=== PATIENT | male | born 1965 | race Caucasian/White ===

== ENCOUNTER 2021-03-20 19:20 | Emergency (ER) | payer OTHER, SELFPAY ==
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
--- NOTE | ~2021-03-20 | CT_ITS ---
CT HEAD WITHOUT IV CONTRAST CT CERVICAL SPINE WITHOUT IV CONTRAST CT MAXILLOFACIAL WITHOUT IV CONTRAST INDICATION: Fall. Hit head. COMPARISON: None available. TECHNIQUE: Multidetector CT acquisitions of the head, maxillofacial region, and cervical spine were obtained without IV contrast. Multiplanar reformats were acquired and utilized for image interpretation. This CT examination was performed using dose optimization techniques as appropriate, variously including the following: *Automated exposure control *Adjustment of mA and/or kV according to patient size (this includes techniques or standardized protocols for targeted exams where dose is matched to indication/reason for exam; i.e. extremities or head) *Use of iterative reconstruction technique FINDINGS: HEAD: There is no intracranial hemorrhage, hydrocephalus, extra-axial surface collection, midline shift, or other herniation pattern. Miramontes to white matter differentiation is diffusely maintained without evidence of an evolved acute territorial infarct. The basilar cisterns are preserved. No significant soft tissue abnormality. No acute osseous abnormality. The paranasal sinuses and the mastoid air cells are well aerated. MAXILLOFACIAL: No acute maxillofacial fractures. Right periorbital/right frontal scalp soft tissue swelling. Periapical lucency surrounding the roots of the residual maxillary and mandibular dentition. Small fluid level within the right maxillary sinus which exhibits the sequela of chronic sinusitis. Mild mucosal thickening throughout the ethmoid air cells bilaterally. Rightward deviation of the nasal septum. CERVICAL SPINE: There is anatomic alignment of the vertebral bodies and posterior elements. There is no acute fracture and there is no acute subluxation. The craniocervical and atlantoaxial articulations are normal. There is no prevertebral soft tissue swelling. Left styloid process is elongated. No significant soft tissue abnormality within the neck. Stable image nodular and bandlike opacities within the lung apices for which a dedicated contrast-enhanced CT of the chest would be helpful in more definitive assessment. CT/CT facial bones wo con IMPRESSION: - No acute intracranial abnormality. - No acute osseous abnormality within the cervical spine. - No acute osseous abnormality within the maxillofacial region. Right periorbital/right frontal scalp soft tissue swelling. - Stable image nodular and bandlike opacities within the lung apices for which a dedicated contrast-enhanced CT of the chest would be helpful in more definitive assessment. - Elongated left styloid process that can be correlated for clinical signs of [place] syndrome. - Periapical lucency surrounding the roots of the residual maxillary and mandibular dentition.
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
--- NOTE | 2021-03-20 19:39 | ECG_ITS ---
Test Reason : FALL Blood Pressure : / mmHG Vent. Rate : 065 BPM Atrial Rate : 065 BPM P-R Int : 180 ms QRS Dur : 092 ms QT Int : 426 ms P-R-T Axes : 075 067 062 degrees QTc Int : 443 ms Normal sinus rhythm Early repolarization Otherwise normal ECG When compared with ECG of 27-JUL-2019 14:31, No significant change was found Referred By: Marietta Varner Electronically Signed By:NEY SINGH
[2021-03-20 19:52] VITALS: BP 125/74; PULSE 67; PULSE 68; RESP 17; TEMP 36.9; O2SAT 100; O2SAT 96; BMI 23.6
[2021-03-20 20:00] VITALS: BP 125/74; PULSE 67; RESP 18; TEMP 36.9; O2SAT 100
[2021-03-20 20:19] LABS: MANUAL DIFF FLAG NO
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
[2021-03-20 20:20] LABS: Basophils Percent Auto 0.5 % (0-2); Eosinophils Absolute Auto 0.1 X10*3/uL (0.0-0.4); Eosinophils Percent Auto 1.1 % (0-4); Hematocrit 36.6 % (42.0-52.0); Hemoglobin 12.4 g/dl (14.0-18.0); Imm Gran Abs Auto 0.02 X10*3/uL (0.00-0.03); Imm Gran Pct Auto 0.3 % (0.0-0.4); Lymphocytes Absolute Auto 1.9 X10*3/uL (1.2-4.9); Lymphocytes Percent Auto 29.7 % (20-40); Mean Corpuscular HGB Conc 33.9 g/dl (31.0-36.0); Mean Corpuscular Hemoglobin 28.7 pg (27.0-33.0); Mean Corpuscular Volume 84.7 fL (80.0-98.0); Mean Platelet Volume 8.6 fL (9.4-12.4); Monocytes Absolute Auto 0.4 X10*3/uL (0.1-1.2); Neutrophils Absolute Auto 3.9 x10*3/uL (2.0-8.3); Neutrophils Percent Auto 61.4 % (45-73); Platelet Count 278 X10*3/uL (160-400); Red Blood Count 4.32 X10*6/uL (4.60-5.80); Red Cell Distribution Width 13.1 % (11.0-16.0); White Blood Count 6.3 X10*3/uL (4.8-10.8)
[2021-03-20 20:28] LABS: COVID-19 Test Negative (Negative)
[2021-03-20 20:32] LABS: Ethanol < 10 mg/dL; Partial Thromboplastin Time 31.7 SEC (24.1-38.0)
[2021-03-20 20:35] LABS: Alanine Aminotransferase 24 U/L (0-40); Albumin Level 3.9 g/dL (3.5-5.0); Alkaline Phosphatase 78 U/L (39-117); Anion Gap 13 (12-20); Aspartate Amino Transferase 32 U/L (5-37); Bilirubin Total 0.5 mg/dL (0.0-1.0); Blood Urea Nitrogen 11 mg/dL (9-16); Calcium 9.1 mg/dL (8.4-10.2); Carbon Dioxide 26 mmol/L (22-29); Chloride 105 mmol/L (96-108); Creatinine Clr Calc Pharmacy 110.9; Estimated Glomerular Filt Rate > 60; Glucose Random 109 mg/dL (60-115); Potassium 3.8 mmol/L (3.3-5.1); Sodium 140 mmol/L (135-145); Total Protein 7.2 g/dL (6.5-8.0)
[2021-03-20 20:49] LABS: Troponin-I High Sensitivity < 3.5 ng/L (<3.5-35.0)
[2021-03-20 21:30] LABS: Appearance Urine CLEAR; Color Urine YELLOW; Glucose Urine UA NEG (NEG); Leukocyte Esterase Urine NEG (NEG); Nitrite Urine NEG (NEG); Specific Gravity - Urine 1.025 (1.005-1.025); Urine Blood NEG (NEG); Urine Ketones 5 MG/DL (NEG); Urine Protein NEG (NEG-TRACE)
[2021-03-20 21:39] LABS: Ammonia 38 umol/L (13-55)
[2021-03-20] MEDS: 0.9 % Sodium Chloride 1,000 ML 999 ML IV (21:46)
[2021-03-20 21:52] LABS: Amphetamine Screen Urine Not Detected (Not Detect); Barbiturates, Urine Not Detected (Not Detect); Benzodiazepines Screen Urine Not Detected (Not Detect); Cannabinoid Screen Urine POSITIVE (Not Detect); Cocaine Screen Urine POSITIVE (Not Detect); Fentanyl, urine POSITIVE (Not Detect); Opiate Screen Urine POSITIVE (Not Detect); Phencyclidine Screen Urine Not Detected (Not Detect)
--- NOTE | 2021-03-20 23:01 | PC.NURSE ---
patient undressed and checked for bugs per EMS report, negative for bugs, pt sleeping entire course of care, vital signs stable will continue to monitor
[2021-03-21] MEDS: Diphth,Pertus(ACell),Tet Adult 0.5 ML SYRINGE IM (02:04)
[2021-03-21 04:46] VITALS: BP 132/72; PULSE 60
== END 2021-03-21 06:41 | disposition home or self-care (01) ==
LOC: HO.ED 03-21 04:35
PROVIDERS: Physician Assistant; Emergency Provider Internal Medicine
DX: F10.120 Alcohol abuse with intoxication, uncomplicated (principal); S00.211A Abrasion of right eyelid and periocular area, initial encounter; W01.0XXA Fall on same level from slipping, tripping and stumbling without subsequent striking against object, initial encounter; Z20.822 Contact with and (suspected) exposure to COVID-19; Y93.01 Activity, walking, marching and hiking; Y92.414 Local residential or business street as the place of occurrence of the external cause; Y99.9 Unspecified external cause status
CPT/HCPCS: 36415; 70450; 70486; 71045; 72125; 80053; 80307; 81003; 82077; 82140; 82550; 83735; 84484; 85025; 85610; 85730; 87635; 90471; 90715; 93005; 96360; 99283; 99284

== ENCOUNTER 2021-07-02 00:24 | Emergency (ER) | payer OTHER, MEDICAID, SELFPAY ==
[2021-07-02 00:32] VITALS: BP 126/79; PULSE 74; RESP 18; TEMP 36.6; O2SAT 96; BMI 25.1
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
[2021-07-02 01:09] LABS: COVID-19 Test Negative (Negative)
== END 2021-07-02 09:30 | disposition home or self-care (01) ==
PROVIDERS: Emergency Provider Emergency Medicine
DX: F19.10 Other psychoactive substance abuse, uncomplicated (principal); F10.10 Alcohol abuse, uncomplicated; Y90.9 Presence of alcohol in blood, level not specified; Z20.822 Contact with and (suspected) exposure to COVID-19
CPT/HCPCS: 87635; 99283

== ENCOUNTER 2021-09-29 21:17 | Inpatient (IN) | payer OTHER, SELFPAY ==
--- NOTE | ~2021-09-29 | CT_ITS ---
EXAMINATION: CT HUMERUS WITHOUT CONTRAST, RIGHT CLINICAL INFORMATION: Intravenous drug use. Question tenosynovitis. COMPARISON: None TECHNIQUE: Multidetector CT imaging of the right humerus was performed without the use of intravenous contrast. Coronal and sagittal reformats are reviewed. This CT examination was performed using dose optimization techniques as appropriate, variously including the following: *Automated exposure control *Adjustment of mA and/or kV according to patient size (this includes techniques or standardized protocols for targeted exams where dose is matched to indication/reason for exam; i.e. extremities or head) *Use of iterative reconstruction technique DLP: 221 mGy-cm FINDINGS: There is diffuse increased attenuation of the subcutaneous fat about the right upper arm. There is a skin defect and presumptive packing material within the distal biceps brachialis. There are metallic densities, possibly surgical clips within the proximal forearm. Surgical clips also present within the axilla. No drainable collections are identified. No soft tissue gas. No periosteal reaction or cortical destruction to suggest osteomyelitis CT/CT humerus RT wo con IMPRESSION: * There is a skin defect and underlying wound extending into the biceps brachia, containing presumptive packing material. * No soft tissue gas to confirm necrotizing fasciitis. * No drainable collection. * Diffuse subcutaneous edema about the upper arm could be compatible with cellulitis. * No evidence of osteomyelitis.
[2021-09-29 21:45] VITALS: BP 113/74; PULSE 64; RESP 18; TEMP 37.4; O2SAT 97; BMI 19.7
[2021-09-29 22:03] LABS: MANUAL DIFF FLAG NO
[2021-09-29 22:04] LABS: Basophils Percent Auto 0.2 % (0-2); Eosinophils Percent Auto 0.3 % (0-4); Hematocrit 32.6 % (42.0-52.0); Hemoglobin 11.1 g/dl (14.0-18.0); Imm Gran Abs Auto 0.04 X10*3/uL (0.00-0.03); Imm Gran Pct Auto 0.4 % (0.0-0.4); Lymphocytes Absolute Auto 2.3 X10*3/uL (1.2-4.9); Lymphocytes Percent Auto 20.7 % (20-40); Mean Corpuscular Hemoglobin 29.5 pg (27.0-33.0); Mean Corpuscular Volume 86.7 fL (80.0-98.0); Monocytes Absolute Auto 0.7 X10*3/uL (0.1-1.2); Monocytes Percent Auto 5.8 % (2-11); Neutrophils Absolute Auto 8.1 x10*3/uL (2.0-8.3); Neutrophils Percent Auto 72.6 % (45-73); Platelet Count 287 X10*3/uL (160-400); Red Blood Count 3.76 X10*6/uL (4.60-5.80); Red Cell Distribution Width 13.7 % (11.0-16.0); White Blood Count 11.2 X10*3/uL (4.8-10.8)
[2021-09-29 22:22] LABS: Lactic Acid 0.8 mmol/L (0.5-2.0)
[2021-09-29 22:27] LABS: Alanine Aminotransferase 95 U/L (0-40); Albumin Level 3.4 g/dL (3.5-5.0); Alkaline Phosphatase 95 U/L (39-117); Anion Gap 11 (12-20); Aspartate Amino Transferase 63 U/L (5-37); Bilirubin Total 0.7 mg/dL (0.0-1.0); Blood Urea Nitrogen 10 mg/dL (9-16); Calcium 8.5 mg/dL (8.4-10.2); Carbon Dioxide 26 mmol/L (22-29); Chloride 100 mmol/L (96-108); Creatinine Clr Calc Pharmacy 109.5; Estimated Glomerular Filt Rate > 60; Glucose Random 130 mg/dL (60-115); Sodium 133 mmol/L (135-145)
[2021-09-30 03:36] VITALS: BP 111/73; PULSE 75; RESP 16; TEMP 36.8; O2SAT 98
--- NOTE | 2021-09-30 04:21 | ED.SKABFB ---
HPI - Skin/Abscess/Foreign Bdy General Chief complaint: Skin/Abscess/Foreign Body Stated complaint: Abscess Time Seen by Provider: 09/30/21 04:12 Source: patient Mode of arrival: ambulatory Limitations: no limitations History of Present Illness HPI narrative: Patient comes to the emergency room complaining of a right forearm abscess that started 2 days ago. Patient is an IV drug user. Patient denies fever chills, patient states that his arm has gotten very swollen and very tender, from the abscess to the biceps. Related Data Allergies Allergy/AdvReac Type Severity Reaction Status Date / Time No Known Drug Allergies Allergy Unknown UNKNOWN Verified 09/29/21 21:44 Review of Systems Review of Systems: Constitutional : No Weight loss, No Fever, No Chills, No Night Sweats, No Fatigue, No Malaise ENT/Mouth : No Hearing loss, No Ear Pain, No Nasal Congestion, No Sinus Pain, No Hoarseness, No sore throat, No Rhinorrhea, No Swallowing Difficulty Eyes: No Eye Pain, No Swelling, No Redness, No Foreign Body, No Discharge, No Vision Changes Cardiovascular : No Chest Pain, No SOB, No Dyspnea on Exertion, No Orthopnea, No Edema, No Palpitations Respiratory : No Cough, No Sputum, No Wheezing, No Smoke Exposure, No Dyspnea Gastrointestinal : No Nausea, No Vomiting, No Diarrhea, No Constipation, No abdominal Pain, No Hematochezia, No Melena Genitourinary : no irregular bleeding, No Dysuria, No Urinary Frequency, No Hematuria, No Urinary Incontinence, No Urgency, No Flank Pain, No Urinary Flow Changes, No Hesitancy Musculoskeletal : No joint pain, No Myalgias, No Joint Swelling, complaining of worsening pain in the biceps area above the abscess Skin : Abscess oozing pus,\ in the right forearm Neuro : No Weakness, No Numbness, No Paresthesias, No Loss of Consciousness, No Dizziness, No Headache Psych : No Anxiety/Panic, No Depression, No SI/HI/AH/VH, No Social Issues, Heme/Lymph: No Bruising, No Bleeding,No Lymphadenopathy Endocrine : No Polyuria, No Polydipsia, No Temperature Intolerance PMFSH Past Medical History Surgical History (Updated 09/30/21 @ 06:10 by Anni Chand MD) No pertinent past surgical history Family History Family History (Updated 09/30/21 @ 06:10 by Anni Chand MD) Other No family history of coronary artery disease Social History Social History (Updated 09/30/21 @ 06:11 by Anni Chand MD) Alcohol intake: current Patient Tobacco Use Status: Current everyday Tobacco user Use of substances other than those prescribed or required for medical reasons: Yes Substance Use Type: IV Drugs Advance Directives: No Advance Directives Information Provided: Yes Physical Exam Vital Signs: Vital Signs: Last Vital Signs Temp 98.2 F 09/30/21 03:36 Pulse 75 09/30/21 03:36 Resp 16 09/30/21 03:36 BP 111/73 09/30/21 03:36 Pulse Ox 98 09/30/21 03:36 O2 Del Method 09/30/21 03:36 BMI result Body Mass Index 19.7 Const: Other: Appearance: Alert. Oriented X3. No acute distress. Eyes: Pupils equal, round and reactive to light. ENT: Pharynx normal. Neck: Normal inspection. Neck supple. No lymph nodes noted. No crepitus CVS: Normal heart rate and rhythm. Pulses normal. Normal S1 and S2 Respiratory: No respiratory distress. Breath sounds normal. No Wheezing. No rales Abdomen: Soft and nontender. No rigidity. No distention. Skin: Skin warm and dry. Patient has an abscess in the right forearm in the antecubital fossa. Actively draining pus. Extremities: No lower extremity edema. Patient's right arm around the biceps is erythematous, very warm to touch, very tense. Patient does have discomfort but not out of proportion, compartment syndrome not suspected at this time. Patient is able to flex and extend all fingers without difficulty Neuro: Oriented X 3. No motor deficit. No sensory deficit. Moving all extremities. No slurred speech. CN 2 through 12 grossly intact Psych: calm, cooperative, normal affect Course Course Course Narrative: Due to the extent of the cellulitis, patient would likely benefit from IV antibiotics and admission. Abscess will be drained shortly For patient has full function of his arm, the bicipital area is erythematous and swollen. Pain is not out of proportion. At this time, compartment syndrome is not suspected. Abscess drain a moderate amount of pus, packing present. CT scan pending. Patient agrees to the plan of being admitted CT scan of arm pending I discussed the patient with Dr. Chand, patient has been started on vancomycin and Zosyn. Sepsis is not suspected. MDM - Skin/Abscess/Foreign Bdy Lab Data Result diagrams: 09/30/21 05:50 09/30/21 05:50 Labs: Lab Results 09/29/21 09/29/21 09/29/21 Range/Units 21:57 21:57 21:57 WBC 11.2 H (4.8-10.8) X10*3/uL RBC 3.76 L (4.60-5.80) X10*6/uL Hgb 11.1 L (14.0-18.0) g/dl Hct 32.6 L (42.0-52.0) % MCV 86.7 (80.0-98.0) fL MCH 29.5 (27.0-33.0) pg MCHC 34.0 (31.0-36.0) g/dl RDW 13.7 (11.0-16.0) % Plt Count 287 (160-400) X10*3/uL MPV 8.0 L (9.4-12.4) fL Immature Gran % (Auto) 0.4 (0.0-0.4) % Neut % (Auto) 72.6 (45-73) % Lymph % (Auto) 20.7 (20-40) % [place] % (Auto) 5.8 (2-11) % Eos % (Auto) 0.3 (0-4) % Baso % (Auto) 0.2 (0-2) % Lymph # (Auto) 2.3 (1.2-4.9) X10*3/uL [place] # (Auto) 0.7 (0.1-1.2) X10*3/uL Eos # (Auto) 0.0 (0.0-0.4) X10*3/uL Baso # (Auto) 0.0 (0.0-0.2) X10*3/uL Abs Immat Gran (auto) 0.04 H (0.00-0.03) X10*3/uL Absolute Neuts (auto) 8.1 (2.0-8.3) x10*3/uL Absolute Nucleated RBC 0.000 (0.0-0.012) X10*3/uL Nucleated RBC % (auto) 0.0 (0.0-0.2) /100WBC Sodium 133 L (135-145) mmol/L Potassium 4.0 (3.3-5.1) mmol/L Chloride 100 (96-108) mmol/L Carbon Dioxide 26 (22-29) mmol/L Anion Gap 11 L (12-20) BUN 10 (9-16) mg/dL Creatinine 0.70 (0.5-1.4) mg/dL Estim Creat Clear Calc 109.5 Estimated GFR > 60 Random Glucose 130 H (60-115) mg/dL Lactic Acid 0.8 (0.5-2.0) mmol/L Calcium 8.5 D (8.4-10.2) mg/dL Total Bilirubin 0.7 (0.0-1.0) mg/dL AST 63 H (5-37) U/L ALT 95 H (0-40) U/L Alkaline Phosphatase 95 D (39-117) U/L Total Protein 7.0 (6.5-8.0) g/dL Albumin 3.4 L (3.5-5.0) g/dL Imaging Data Upper extremity CT: Radiologist's impression: FINDINGS: There is diffuse increased attenuation of the subcutaneous fat about the right upper arm. There is a skin defect and presumptive packing material within the distal biceps brachialis. There are metallic densities, possibly surgical clips within the proximal forearm. Surgical clips also present within the axilla. No drainable collections are identified. No soft tissue gas. No periosteal reaction or cortical destruction to suggest osteomyelitis CT/CT humerus RT wo con IMPRESSION: *? There is a skin defect and underlying wound extending into the biceps brachia, containing presumptive packing material. *? No soft tissue gas to confirm necrotizing fasciitis. *? No drainable collection. *? Diffuse subcutaneous edema about the upper arm could be compatible with cellulitis. *? No evidence of osteomyelitis. Procedures Abscess I/D Site: other (Proximal Forearm) Side (if applicable): right Local Anesthetic: lidocaine 2% and with epi Amount of anesthesia used (mL): 9 Technique: incised with blade Amount of fluid expressed (mL): 10 Sent for culture/gram staining?: No Irrigation: No Packing used?: iodoform Discharge Plan Discharge Clinical Impression: Abscess of skin or subcutaneous tissue Patient Disposition: Admitted As Inpatient Interventions: LWBS Worksheet Last Done: 09/29/21 23:50
[2021-09-30] MEDS: Lidocaine HCl 1%/Epi 1:100,000 20 ML VIAL INFILTRATI (04:31)
[2021-09-30] MEDS: Morphine Sulfate 4 MG/ML CARTRIDGE IVPUSH (05:05)
[2021-09-30] MEDS: Piperacillin Sodium/Tazobactam 3.375 GM in 0.9 % Sodium Chloride 50 ML IV ×4 (05:05→23:37)
[2021-09-30] MEDS: vancomycin HCL 750 MG in 0.9 % Sodium Chloride 250 ML 265 MG IV ×2 (05:06→07:37)
--- NOTE | 2021-09-30 05:28 | P.HPHOSP_ITS ---
History of Present Illness Date of Service: 09/30/21 Chief Complaint: Abscess 56-year-old male with past medical history of IV drug use, alcohol abuse who presents to the hospital with complaints of abscess on the right forearm. Patient reports that he noticed it about 2-3 days ago, it is draining a malodorous pus, patient reports feeling febrile, as well as having chills. Patient denies any redness around the abscess,He reports swelling around the forearm, but has no difficulty moving his arms or hands. No loss of sensation. he denies any chest pain, no shortness of breath, no abdominal pain, no nausea or vomiting, no diarrhea constipation, no urinary symptoms and no lower extremity edema. He reports injecting at that site. On arrival to the ED patient hemodynamically stable with no significant abnormal vitals. Afebrile Labs are significant for WBC count 11.2, hemoglobin of 11.1, hematocrit 32.6, sodium 133, Patient underwent I&D in the the ED and has packing at this site Humerus CT shows a skin defect and underlying wound extending into the biceps brachii, containing presumptive packing material, no soft tissue gas to confirm necrotizing fasciitis, no drainable collection, diffuse subcutaneous edema about the upper arm could be compatible with cellulitis. Patient will be admitted for further management Review of Systems Review of Systems: Yes all other systems are reviewed and are negative [facility] Family History (Updated 09/30/21 @ 06:10 by Anni Chand MD) Other No family history of coronary artery disease Surgical History (Updated 09/30/21 @ 06:10 by Anni Chand MD) No pertinent past surgical history Social History (Updated 09/30/21 @ 06:11 by Anni Chand MD) Alcohol intake: current Patient Tobacco Use Status: Current everyday Tobacco user Use of substances other than those prescribed or required for medical reasons: Yes Substance Use Type: IV Drugs Advance Directives: No Advance Directives Information Provided: Yes Meds Allergies Allergy/AdvReac Type Severity Reaction Status Date / Time No Known Drug Allergies Allergy Unknown UNKNOWN Verified 09/29/21 21:44 Physical Exam Vital Signs and Narrative: Vital Signs: Last Vital Signs Temp 98.2 F 09/30/21 03:36 Pulse 75 09/30/21 03:36 Resp 16 09/30/21 03:36 BP 111/73 09/30/21 03:36 Pulse Ox 98 09/30/21 03:36 O2 Del Method 09/30/21 03:36 BMI result Body Mass Index 19.7 Const: Other: Ill-appearing General: cooperative and no acute distress Orientation/consciousness: patient oriented x3 Eyes: General: appearance normal, both eyes and all related structures Resp: Effort & Inspection: normal respiratory effort Auscultation: clear to auscultation bilaterally Cardio: Rate: regular rate Rhythm: regular rhythm GI: Palpation (GI): Soft to palpation Auscultation: normal bowel sounds Skin: General skin exam: no rashes or lesions noted Neuro: General: patient oriented x3 Cognition (Neuro): normal cognition Extrem: Other: Right upper extremity abscess wrapped in clean dressing at this time General: Yes normal to inspection and Yes no pedal edema Results Labs CBC and Chem 7: 09/29/21 21:57 09/29/21 21:57 Labs: Laboratory Results - last 24 hr 09/29/21 09/29/21 09/29/21 21:57 21:57 21:57 MCV 86.7 MCH 29.5 MCHC 34.0 RDW 13.7 Plt Count 287 MPV 8.0 L Immature Gran % (Auto) 0.4 Neut % (Auto) 72.6 Lymph % (Auto) 20.7 [place] % (Auto) 5.8 Eos % (Auto) 0.3 Baso % (Auto) 0.2 Lymph # (Auto) 2.3 [place] # (Auto) 0.7 Eos # (Auto) 0.0 Baso # (Auto) 0.0 Abs Immat Gran (auto) 0.04 H Absolute Neuts (auto) 8.1 Absolute Nucleated RBC 0.000 Nucleated RBC % (auto) 0.0 Anion Gap 11 L Estim Creat Clear Calc 109.5 Estimated GFR > 60 Random Glucose 130 H Lactic Acid 0.8 Calcium 8.5 D Total Bilirubin 0.7 AST 63 H ALT 95 H Alkaline Phosphatase 95 D Total Protein 7.0 Albumin 3.4 L Assessment and Plan (1) Abscess of skin or subcutaneous tissue: Status: Acute (2) IVDU (intravenous drug user): Status: Acute (3) Alcohol abuse: Status: Acute Plan 56-year-old male with past medical history of IV drug abuse presents to the hospital with abscess of right upper extremity # abscess of right upper extremity - status post I&D in the ED - given his history of IV drug use, will treat with IV antibiotics - follow cultures # alcohol abuse - reports drinking a lot of beer every day - will start on phenobarb - folic and thiamine supplements # IV drug abuse - consult to care team DVT prophylaxis: Lovenox Given his history of IV drug use and need for IV antibiotics patient will need a minimal 2 night hospital stay for further management Quality Stroke Does the patient have a stroke diagnosis?: No VTE Prior VTE?: No VTE Risk Level:: Medical - moderate - high VTE Device Contraindication: Treatment Not Indicated VTE Drug Contraindication: N/A - Med Ordered
[2021-09-30 06:11] LABS: MANUAL DIFF FLAG NO
[2021-09-30 06:27] LABS: Anion Gap 11 (12-20); Blood Urea Nitrogen 9 mg/dL (9-16); Calcium 8.6 mg/dL (8.4-10.2); Carbon Dioxide 26 mmol/L (22-29); Chloride 101 mmol/L (96-108); Creatinine Clr Calc Pharmacy 117.9; Estimated Glomerular Filt Rate > 60; Glucose Random 140 mg/dL (60-115); Potassium 4.2 mmol/L (3.3-5.1); Sodium 134 mmol/L (135-145)
[2021-09-30] MEDS: Enoxaparin Sodium 40 MG/0.4 ML SYRINGE SUBCUT (06:28)
[2021-09-30 06:38] LABS: Basophils Percent Auto 0.2 % (0-2); Eosinophils Percent Auto 0.4 % (0-4); Hematocrit 34.3 % (42.0-52.0); Hemoglobin 11.4 g/dl (14.0-18.0); Imm Gran Abs Auto 0.02 X10*3/uL (0.00-0.03); Imm Gran Pct Auto 0.2 % (0.0-0.4); Lymphocytes Percent Auto 21.1 % (20-40); Mean Corpuscular HGB Conc 33.2 g/dl (31.0-36.0); Mean Corpuscular Hemoglobin 29.1 pg (27.0-33.0); Mean Corpuscular Volume 87.5 fL (80.0-98.0); Mean Platelet Volume 8.7 fL (9.4-12.4); Monocytes Absolute Auto 0.6 X10*3/uL (0.1-1.2); Monocytes Percent Auto 6.5 % (2-11); Neutrophils Absolute Auto 6.7 x10*3/uL (2.0-8.3); Neutrophils Percent Auto 71.6 % (45-73); Platelet Count 301 X10*3/uL (160-400); Red Blood Count 3.92 X10*6/uL (4.60-5.80); Red Cell Distribution Width 13.8 % (11.0-16.0); White Blood Count 9.4 X10*3/uL (4.8-10.8)
[2021-09-30] MEDS: Folic Acid 1 MG TABLET PO (07:38)
[2021-09-30] MEDS: Thiamine HCL 100 MG TABLET PO (07:38)
--- NOTE | 2021-09-30 07:58 | PHA.MEDREC ---
Pharmacy Consult ? Medication Reconciliation Pharmacy has completed the medication reconciliation. Patient reports no medications at home. Clara Adames, JcD
--- NOTE | 2021-09-30 08:14 | PHA.PROG ---
Admission Date/Time: September 30, 2021 05:26 Indication: Abcess Weight in k.2 kg Adjusted body weight in K.86 kg Christopher body weight in K.3 kg Obesity Dosing Indication % IBW: N/A Serum Creatinine - Last 168 Hours 09/29/21 09/30/21 21:57 05:50 Creatinine 0.70 0.65 Estimated CrCl and GFR - Last 168 Hours 09/29/21 09/30/21 21:57 05:50 Estim Creat Clear Calc 109.5 117.9 Estimated GFR > 60 > 60 Vancomycin Loading Dose: 1500 mg (750 mg x 2 doses) Current Vancomycin Dosing Regimen: 1000 mg Q12H Date and Time for next Vancomycin Level to be drawn: 10/01 @ 1700 Pharmacist Comments on Vancomycin Plan: Patient was given a one time dose of vancomycin 750 mg (11.68 mg/kg) in the ED 09/30 @ 0506. Since this is a subtherapeutic loading dose, a one time 750 mg dose was given at 0737 to create a load dose of 1500 mg. Maintenance dose vancomycin 1000 mg Q12H is schedule to begin 09/30 @ 1900. Expected AUC 450 with a trough of 12.9. Trough to be drawn prior to 3rd maintenance dose. Pharamcy to monitor renal function daily Clara Adames PharmD Vancomycin dosing will take advantage of [employer] as a clinical decision support tool that uses Bayesian modeling to calculate individual patient's pharmacokinetic parameters and forecast the patient's drug concentration time course with the target goal AUC 24 range of 400 - 600 mg/L/hr.
[2021-09-30] MEDS: PHENobarbitaL 200 MG, PHENobarbitaL 60 MG 260 MG PO (08:21)
--- NOTE | 2021-09-30 08:48 | MHC.CM.PN ---
PATIENT IDENTIFIES HOMELESS. NO PCP. NO DME OR OUTSIDE SERVICES. HE HAS NOT BEEN VACCINATED AGAINST COVID-19 HE IS NOT INTERESTED IN ASSIGNING A HCP AND REPORTS THAT HE DOES NOT HAVE ANY PERSON TO ADD A CONTACT. CASE MANAGEMENT FOLLOWING
[2021-09-30 08:49] LABS: COVID-19 Test Negative (Negative); IDNOW Serial# 16C4AD1C
--- NOTE | 2021-09-30 09:23 | PC.NURSE ---
Patient moved to overflow, up walking around unit without difficulty, asking for remote, denies pain at this time
[2021-09-30 09:28] VITALS: BP 115/74; PULSE 74; RESP 15; TEMP 37.1; O2SAT 94
[2021-09-30 13:02] VITALS: BP 114/81; PULSE 72; RESP 16; TEMP 36.9; O2SAT 98
[2021-09-30] MEDS: Acetaminophen 325 MG TABLET 650 MG PO (17:44)
--- NOTE | 2021-09-30 19:17 | PC.NURSE ---
pt standing up shouting for this RN to room at start of shift, pt stated he needed to use the BR. pt disconnected from monitor and ambulated to BR with steady gait
[2021-09-30 19:20] VITALS: BP 116/75; PULSE 71; TEMP 37; O2SAT 98
[2021-09-30] MEDS: vancomycin HCL 1,000 MG in 0.9 % Sodium Chloride 250 ML 270 MG IV (19:39)
[2021-09-30 20:00] VITALS: BP 120/71; PULSE 74; RESP 18; TEMP 36.8; O2SAT 97
[2021-09-30 21:02] VITALS: BMI 19.3
[2021-09-30] MEDS: PHENobarbitaL 15 MG TABLET 45 MG PO (21:20)
[2021-09-30] MEDS: 0.9 % Sodium Chloride Flush 3 ML SYRINGE IVFLUSH (21:22)
[2021-09-30 23:33] VITALS: BP 129/87; PULSE 72; RESP 17; TEMP 36.9; O2SAT 100
[2021-10-01] VITALS (7 sets, daily range): BP systolic 127–159; BP diastolic 77–91; PULSE 55–82; RESP 15–18; TEMP 36.7–37.6; O2SAT 97–99
--- NOTE | 2021-10-01 | ECG_ITS ---
Test Reason : cp Blood Pressure : / mmHG Vent. Rate : 077 BPM Atrial Rate : 077 BPM P-R Int : 164 ms QRS Dur : 088 ms QT Int : 392 ms P-R-T Axes : 076 066 060 degrees QTc Int : 443 ms Normal sinus rhythm Minimal voltage criteria for LVH, may be normal variant ( [place] product ) ST elevation, consider early repolarization, pericarditis, or injury Abnormal ECG When compared with ECG of 20-MAR-2021 19:59, No significant change was found Referred By: Anni Chand Electronically Signed By:Krishna Rodríguez
--- NOTE | 2021-10-01 00:29 | PC.NURSE ---
hematology technician notified me patient had T wave elevations in all leads. Pt sleeping. Asymptomatic. Dr Chand notified. EKG obtained and sent to Will continue to monitor.
--- NOTE | 2021-10-01 01:06 | PM.EVENT ---
Event Note Date of Service: 10/01/21 Event Note: Patient noted to have ST elevations on the monitor, EKG obtained, patient has diffuse ST elevations concerning for possible pericarditis. Patient is asymptomatic and has no pain. Will obtain troponin, start ibuprofen t.i.d..
[2021-10-01] MEDS: Ibuprofen 600 MG TABLET PO (01:49)
[2021-10-01 01:56] LABS: Troponin-I High Sensitivity < 3.5 ng/L (<3.5-35.0)
[2021-10-01] MEDS: Piperacillin Sodium/Tazobactam 3.375 GM in 0.9 % Sodium Chloride 50 ML IV ×4 (05:34→23:11)
[2021-10-01] MEDS: Enoxaparin Sodium 40 MG/0.4 ML SYRINGE SUBCUT (05:40)
[2021-10-01 06:52] LABS: Estimated Glomerular Filt Rate > 60
--- NOTE | 2021-10-01 07:10 | HE.PHANOTE ---
Vancomycin Dosing Addendum Patient has trough due 10/01 @1700. Continue per regimen for now. Patients renal function is stable. Predicted AUC of 444mg/L/hr
[2021-10-01] MEDS: 0.9 % Sodium Chloride Flush 3 ML SYRINGE IVFLUSH ×3 (09:08→21:26)
[2021-10-01] MEDS: PHENobarbitaL 15 MG TABLET 45 MG PO ×2 (09:08→21:26)
[2021-10-01] MEDS: Folic Acid 1 MG TABLET PO (09:08)
[2021-10-01] MEDS: Thiamine HCL 100 MG TABLET PO (09:08)
[2021-10-01] MEDS: vancomycin HCL 1,000 MG in 0.9 % Sodium Chloride 250 ML 270 MG IV (09:09)
--- NOTE | 2021-10-01 11:04 | P.PNIM_ITS ---
Subjective Subjective Date of Service: 10/01/21 Interval History: cc: arm pain and swelling interval history: withdrawal symptoms, weakness abd cramping, denies chest pain, denies sob Cardiovascular Cardiovascular: Reports no additional cardiovascular complaints Respiratory Respiratory: Reports no additional respiratory complaints Physical Exam Vital Signs: Vital Signs: Last Vital Signs Temp 99.5 F 10/01/21 07:42 Pulse 76 10/01/21 07:42 Resp 15 10/01/21 07:42 BP 127/85 10/01/21 07:42 Pulse Ox 97 10/01/21 07:42 O2 Del Method 10/01/21 07:42 BMI result Body Mass Index 19.3 General: letahrgic O X 3, in distress Resp: CTA bilateral, no accessory muscles used CVS: S1,S2,RRR GI: soft, non tender, non distended Neuro: motor grossly intact, alert Psych: appropriate affect, appropriate insight Objective Data Active Medications Acetaminophen (Acetaminophen 325 Mg Tablet) 650 mg PO Q6H PRN PRN Reason: Pain, Mild (Pain Scale 1-3) Last Admin: 09/30/21 17:44 Dose: 650 mg Documented By: TAZ Docusate Sodium (Docusate Sodium 100 Mg Capsule) 100 mg PO DAILY PRN PRN Reason: Constipation Enoxaparin Sodium (Enoxaparin Sodium 40 Mg/0.4 Ml Syringe) 40 mg SUBCUT Q24H [facility] Last Admin: 10/01/21 05:40 Dose: 40 mg Documented By: CARLOS Folic Acid (Folic Acid 1 Mg Tablet) 1 mg PO DAILY [facility] Last Admin: 10/01/21 09:08 Dose: 1 mg Documented By: MARGARITA Piperacillin Sod/Tazobactam (Sod 3.375 gm/ Sodium Chloride) 50 mls @ 100 mls/hr IV Q6H [facility] Last Infusion: 10/01/21 09:09 Dose: 0 mls/hr Documented By: MARGARITA Vancomycin HCl 1,000 mg/ (Sodium Chloride) 270 mls @ 270 mls/hr IV Q12H [facility] Last Infusion: 10/01/21 10:35 Dose: 0 mls/hr Documented By: MARGARITA Ondansetron HCl (Ondansetron Hcl 4 Mg/2 Ml Vial) 4 mg IVPUSH Q8H PRN PRN Reason: Nausea and Vomiting Pharmacy Consult (Consult Rx Vancomycin Dosing) 1 each MISCELLANE DAILY PRN PRN Reason: Consult order Pharmacy Consult (Consult Rx Etoh Phenob Po Dose) 1 each MISCELLANE ONCE PRN; Protocol PRN Reason: Consult order Phenobarbital (Phenobarbital 15 Mg Tablet) 45 mg PO BID [facility]; Protocol Stop: 10/02/21 09:01 Last Admin: 10/01/21 09:08 Dose: 45 mg Documented By: MARGARITA Phenobarbital (Phenobarbital 15 Mg Tablet) 15 mg PO BID [facility]; Protocol Stop: 10/04/21 09:01 Phenobarbital (Phenobarbital 15 Mg Tablet) 15 mg PO DAILY [facility]; Protocol Stop: 10/06/21 09:01 Sodium Chloride (0.9 % Sodium Chloride Flush 3 Ml Syringe) [facility] Last Admin: 10/01/21 09:08 Dose: 3 ml Documented By: MARGARITA Thiamine HCl (Thiamine Hcl 100 Mg Tablet) 100 mg PO DAILY [facility] Last Admin: 10/01/21 09:08 Dose: 100 mg Documented By: MARGARITA Labs CBC & Chem 7: 09/30/21 05:50 10/01/21 05:49 Labs: Laboratory Results - last 24 hr 10/01/21 10/01/21 01:24 05:49 Estim Creat Clear Calc 117.0 Estimated GFR > 60 Troponin I High Sens < 3.5 Microbiology Microbiology Results: Microbiology 09/29/21 21:57 Blood Culture - Preliminary Blood - Venous No growth after 24 hours. 09/29/21 21:57 Blood Culture - Preliminary Blood - Venous No growth after 24 hours. Assessment and Plan (1) IVDU (intravenous drug user): Status: Acute Plan 56M who injects iv drugs presented with RUE swelling and pain RUE cellulitis and abscessin IVDU s/p i and d no cultures in system, blood cultures negative to date continue vanc, zosyn for now alcohol dependence with withdrawal and afld continue ciwa, phenobarb opiate dependence with withdrawal addiction team consult dvt prophylaxis - lovenox full code reason for continued hospitalization: ongiong treatement for withdrawal Quality Stroke Does the patient have a stroke diagnosis?: No VTE Prior VTE?: No VTE Risk Level:: Medical - moderate - high VTE Device Contraindication: Treatment Not Indicated VTE Drug Contraindication: N/A - Med Ordered
[2021-10-01] MEDS: methADONE HCl 20 MG/2 ML ORAL.CONC PO (12:44)
--- NOTE | 2021-10-01 14:45 | MHC.RECOVRN ---
Met with pt in 353 to follow up after receiving methadone. Pt in bed, asleep but easily awoken. Difficult to engage in conversation. Pt reports back pain and feeling the same. Pt slightly restless during visit but does not report other withdrawal symptoms. Pt is not looking to continue methadone after discharge. Discussed with Radha Pate APRN.
--- NOTE | 2021-10-01 15:24 | MHC.CM.PN ---
nurse case management note electronic medical record reviewe aLONG WITH CASE DISCUSSED ON KARINA REYNOSO PATIENT IDENTIFIES HIMESELF HOMELESS GUEST SERVICE REPRESENTATIVE PC -[facility] TRAFFIC CONTROL TECHNICIAN LIST GIVEN TO HIM TO CHOOSE A PCP AND CALL AND MAKE APPOINTMENT HE HAS NO PREVIOUS VNA /DME SERVICES UNVACINATED EDUCATED ABOUT COMPLETING A HCP AND AGAIN DECLINED RECOVERY TEAM NURSE, NURSE MET WITH PATIENT ON 10/01/21 (PLEASE SEE HER NOTE HE EXPRESSED THAT HE DOES NOT WANT METHDONE AFTER DISCHARGE , AND THIS WAS DISUCEDD WITH [facility] OF HOME ALF, COMMUNITY RESOURCES FOR HOUSING FOOD , CLOTHES TRANSPORTATION GIVEN TO HIM
[2021-10-01 18:14] LABS: Vancomycin Trough 6.2 mcg/mL (10.0-20.0)
--- NOTE | 2021-10-01 18:27 | HE.PHANOTE ---
Patient trough came back at 6.2, he had an appropriate load. Increased dose to 1500 mg q12h next trough 10/02 @1700
[2021-10-01] MEDS: vancomycin HCL 1,500 MG in 0.9 % Sodium Chloride 500 ML 333.33 MG IV (19:31)
[2021-10-02 03:34] VITALS: BP 167/75; PULSE 50; RESP 18; TEMP 37.1; O2SAT 98
[2021-10-02] MEDS: Piperacillin Sodium/Tazobactam 3.375 GM in 0.9 % Sodium Chloride 50 ML IV ×2 (05:14→10:37)
[2021-10-02] MEDS: Enoxaparin Sodium 40 MG/0.4 ML SYRINGE SUBCUT (05:15)
[2021-10-02 07:09] LABS: Hemoglobin 13.7 g/dl (14.0-18.0); Mean Corpuscular HGB Conc 34.3 g/dl (31.0-36.0); Mean Corpuscular Volume 84.6 fL (80.0-98.0); Mean Platelet Volume 8.7 fL (9.4-12.4); Platelet Count 447 X10*3/uL (160-400); Red Blood Count 4.73 X10*6/uL (4.60-5.80); Red Cell Distribution Width 13.2 % (11.0-16.0); White Blood Count 13.6 X10*3/uL (4.8-10.8)
[2021-10-02] MEDS: methADONE HCl 20 MG/2 ML ORAL.CONC 30 MG PO (07:32)
[2021-10-02] MEDS: Folic Acid 1 MG TABLET PO (07:34)
[2021-10-02] MEDS: vancomycin HCL 1,500 MG in 0.9 % Sodium Chloride 500 ML 333.33 MG IV (07:34)
[2021-10-02] MEDS: Thiamine HCL 100 MG TABLET PO (07:34)
[2021-10-02] MEDS: 0.9 % Sodium Chloride Flush 3 ML SYRINGE IVFLUSH (07:39)
[2021-10-02 07:52] LABS: Anion Gap 14 (12-20); Blood Urea Nitrogen 14 mg/dL (9-16); Carbon Dioxide 20 mmol/L (22-29); Chloride 101 mmol/L (96-108); Creatinine Clr Calc Pharmacy 81.4; Estimated Glomerular Filt Rate > 60; Glucose Fasting 133 mg/dL (60-99); Potassium 4.2 mmol/L (3.3-5.1); Sodium 131 mmol/L (135-145)
[2021-10-02] MEDS: PHENobarbitaL 30 MG TABLET 45 MG PO (09:59)
--- NOTE | 2021-10-02 12:43 | MHC.CM.PN ---
nurse bilingual case manager note electronic medical record reviewed along with case disucssed with staff nurse and hospitslidt . patient was admitted with abscess and iv drug abuse , he was seen by the addiction medical physician and recovierty team and given commiunity supports and reosurdces , discharge plan [facility] LIST OF [facility] GIVEN AND INSTRUCTED HE NEED TO CALL TO GET INTO ONE, 2 LISTS OF [facility] PHYSICIAN TO CHOOSE FROM AND PICK ONE AND CALL AND MAKE APPOINTMENT MET WITH RECOVERY NURSE AND ADDITION PHYSICAN AND [id number] BY RECOVIERY NURSE GIVEN INFORMATION ON COMMUNITY SUPPORTS TO FOLLOW UP ON TRANSPORTATION BUS PASSES GIVEN TO HIM ( HE HAS NO SPECIFIC ADDRESS TO GIVE ME WHERE HE IS GOING NO VNA ORDERED BY PHYSICIAN REVIEWED THIS WITH PATIENT ANS STAFF NRUSE
--- NOTE | 2021-10-02 13:04 | HO.ADDICTCON ---
History of Present Illness Date of Service: 10/01/2021 Chief Complaint: Abscess, IVDU Reason for Consult: opioid withdrawal Requesting physician: Jignesh Tejeda Sources of Information: patient interviewed and chart reviewed HPI Narrative: Patient is a 56-year-old [place]andan-speaking male currently medically admitted with abscess of the forearm secondary to IV drug use. Consult requested as patient was reporting withdrawal symptoms. Patient seen in room 353, patient reporting body aches, nausea, and requesting to leave. 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 Reporting between 5-10 bags of heroin IV daily. Last use prior to admission. Reports that he is currently living on [address]. Patient noted to be restless, yawning, shivering. Review of Systems Constitutional: Reports as per HPI Diagnostics Vital Signs (24Hr): Vital Signs - 24 hr 10/01/21 15:13 10/01/21 16:00 10/01/21 19:26 Temperature 98.1 F 98.1 F 98.5 F Pulse Rate 59 59 82 Respiratory Rate 18 18 18 Blood Pressure 159/91 H 159/91 H 132/77 Pulse Oximetry 99 99 97 Oxygen Delivery Method Room Air Room Air Room Air 10/01/21 20:00 10/01/21 23:40 10/02/21 03:34 Temperature 98.5 F 98.9 F 98.7 F Pulse Rate 82 55 50 Respiratory Rate 18 18 18 Blood Pressure 132/77 156/86 H 167/75 H Pulse Oximetry 97 98 98 Oxygen Delivery Method Room Air Room Air Room Air BMI result Body Mass Index 19.3 Labs Results: 10/02/21 05:51 10/02/21 05:51 Labs: Laboratory Results - last 48 hr 10/01/21 10/01/21 10/01/21 01:24 05:49 17:34 WBC RBC Hgb Hct MCV MCH MCHC RDW Plt Count MPV Absolute Nucleated RBC Nucleated RBC % (auto) Sodium Potassium Chloride Carbon Dioxide Anion Gap BUN Creatinine 0.64 Estim Creat Clear Calc 117.0 Estimated GFR > 60 Fasting Glucose Calcium Troponin I High Sens < 3.5 Vancomycin Trough 6.2 L 10/02/21 10/02/21 05:51 05:51 WBC 13.6 H RBC 4.73 D Hgb 13.7 L D Hct 40.0 L MCV 84.6 MCH 29.0 MCHC 34.3 RDW 13.2 Plt Count 447 H D MPV 8.7 L Absolute Nucleated RBC 0.000 Nucleated RBC % (auto) 0.0 Sodium 131 L Potassium 4.2 Chloride 101 Carbon Dioxide 20 L Anion Gap 14 BUN 14 D Creatinine 0.92 Estim Creat Clear Calc 81.4 Estimated GFR > 60 Fasting Glucose 133 H Calcium 8.0 L D Troponin I High Sens Vancomycin Trough Imaging Radiology Impressions: ITS Impressions Humerus CT 09/30/21 04:50 IMPRESSION: * There is a skin defect and underlying wound extending into the biceps brachia, containing presumptive packing material. * No soft tissue gas to confirm necrotizing fasciitis. * No drainable collection. * Diffuse subcutaneous edema about the upper arm could be compatible with cellulitis. * No evidence of osteomyelitis. Mental Status Exam Mental Status Exam Patient Appearance: Unkempt Patient Behavior: Appropriate and Cooperative Medications Allergies Allergies Allergy/AdvReac Type Severity Reaction Status Date / Time No Known Drug Allergies Allergy Unknown UNKNOWN Verified 10/01/21 14:46 Assessment & Plan Assessment & Plan (1) Opioid withdrawal: Status: Acute Code(s): F11.23 - Opioid dependence with withdrawal Assessment and Plan: Methadone 20 mg x 1 ordered Methadone 10 mg p.r.n. 1 time dose ordered for overnight if necessary Will follow up morning I spent ___35___ minutes with the patient and/or on the patient floor today, greater than?50% of which was spent counseling/coordinating care. [facility] Family History Family History (System 10/01/21 @ 14:46 by Jennie Ibarra) Other No family history of coronary artery disease Surgical History Surgical History (System 10/01/21 @ 14:46 by Jennie Ibarra) No pertinent past surgical history Social History Social History (System 10/01/21 @ 14:46 by Jennie Ibarra) Household Members: None Housing: Homeless Do you presently have visiting nurse or other home services: No Alcohol intake: current Patient Tobacco Use Status: Current everyday Tobacco user Tobacco use type: Cigarette Cigarettes Per Day: 15 Substance Use Type: Crack/Cocaine and Marijuana service: No Current occupational status: unemployed and disabled
--- NOTE | 2021-10-02 13:09 | HO.ADDICTPRO ---
Subjective Subjective Date of Service: 10/02/21 Reason For Visit: Abscess, IVDU Interim History: Patient seen in follow-up. Appearing much more comfortable. Reporting that he feels more comfortable. Received 30 mg of methadone. Patient reporting that he would like to be discharged, declines referrals to continue methadone in the community. Information provided anyway just in case. This senior underwriter reviewed risks and benefits of continuing treatment or stopping treatment. Patient verbalized understanding. Review of Systems Constitutional: Reports as per HPI and Reports no additional constitutional complaints Mental Status Exam Mental Status Exam Patient Appearance: Unkempt Patient Behavior: Appropriate and Cooperative Judgement: Fair Diagnostics Vital Signs (24Hr): Vital Signs - 24 hr 10/01/21 15:13 10/01/21 16:00 10/01/21 19:26 Temperature 98.1 F 98.1 F 98.5 F Pulse Rate 59 59 82 Respiratory Rate 18 18 18 Blood Pressure 159/91 H 159/91 H 132/77 Pulse Oximetry 99 99 97 Oxygen Delivery Method Room Air Room Air Room Air 10/01/21 20:00 10/01/21 23:40 10/02/21 03:34 Temperature 98.5 F 98.9 F 98.7 F Pulse Rate 82 55 50 Respiratory Rate 18 18 18 Blood Pressure 132/77 156/86 H 167/75 H Pulse Oximetry 97 98 98 Oxygen Delivery Method Room Air Room Air Room Air BMI result Body Mass Index 19.3 Labs Results: 10/02/21 05:51 10/02/21 05:51 Labs: Laboratory Results - last 48 hr 10/01/21 10/01/21 10/01/21 01:24 05:49 17:34 WBC RBC Hgb Hct MCV MCH MCHC RDW Plt Count MPV Absolute Nucleated RBC Nucleated RBC % (auto) Sodium Potassium Chloride Carbon Dioxide Anion Gap BUN Creatinine 0.64 Estim Creat Clear Calc 117.0 Estimated GFR > 60 Fasting Glucose Calcium Troponin I High Sens < 3.5 Vancomycin Trough 6.2 L 10/02/21 10/02/21 05:51 05:51 WBC 13.6 H RBC 4.73 D Hgb 13.7 L D Hct 40.0 L MCV 84.6 MCH 29.0 MCHC 34.3 RDW 13.2 Plt Count 447 H D MPV 8.7 L Absolute Nucleated RBC 0.000 Nucleated RBC % (auto) 0.0 Sodium 131 L Potassium 4.2 Chloride 101 Carbon Dioxide 20 L Anion Gap 14 BUN 14 D Creatinine 0.92 Estim Creat Clear Calc 81.4 Estimated GFR > 60 Fasting Glucose 133 H Calcium 8.0 L D Troponin I High Sens Vancomycin Trough Imaging Radiology Impressions: ITS Impressions Humerus CT 09/30/21 04:50 IMPRESSION: * There is a skin defect and underlying wound extending into the biceps brachia, containing presumptive packing material. * No soft tissue gas to confirm necrotizing fasciitis. * No drainable collection. * Diffuse subcutaneous edema about the upper arm could be compatible with cellulitis. * No evidence of osteomyelitis. Medications Allergies Allergies Allergy/AdvReac Type Severity Reaction Status Date / Time No Known Drug Allergies Allergy Unknown UNKNOWN Verified 10/01/21 14:46 Assessment & Plan Assessment & Plan (1) Opioid use disorder: Status: Acute Code(s): F11.90 - Opioid use, unspecified, uncomplicated Assessment and Plan: Community information provided to access continuation of methadone if patient open to that. Provided patient with a photocopy of his ID. Risk reduction Education, overdose prevention discussion. Take home Narcan provided I spent _15 minutes with the patient and/or on the patient floor today, greater than?50% of which was spent counseling/coordinating care.
--- NOTE | 2021-10-02 15:38 | PM.DS ---
DS: Providers Provider Date of Service: 10/02/21 Date of admission: 09/30/21 05:26 Primary care physician: Unknown Physician Consults: 10/01/21 11:05 Addiction Medicine Routine Consulting Provider: Radha Pate Reason for consultation: opiate dependence, reporting withdrawal DS: Diagnosis Discharge Diagnosis (1) Opioid use disorder: Status: Acute DS: Summary Hospital Course Hospital Course: history of presenting illness Date of Service: 09/30/21 Chief Complaint: Abscess 56-year-old male with past medical history of IV drug use, alcohol abuse who presents to the hospital with complaints of abscess on the right forearm.? Patient reports that he noticed it about 2-3 days ago, it is draining a malodorous pus, patient reports feeling febrile, as well as having chills.? Patient denies any redness around the abscess,He reports swelling around the forearm, but has no difficulty moving his arms or hands.? No loss of sensation.? he denies any chest pain, no shortness of breath, no abdominal pain, no nausea or vomiting, no diarrhea constipation, no urinary symptoms and no lower extremity edema.? He reports injecting at that site. On arrival to the ED patient hemodynamically stable with no significant abnormal vitals.? Afebrile Labs are significant for WBC count 11.2, hemoglobin of 11.1, hematocrit 32.6, sodium 133, Patient underwent I&D in the the ED and has packing at this site Humerus CT shows a skin defect and underlying wound extending into the biceps brachii, containing presumptive packing material, no soft tissue gas to confirm necrotizing fasciitis, no drainable collection, diffuse subcutaneous edema about the upper arm could be compatible with cellulitis. Patient will be admitted for further management hospital course 56M who injects iv drugs presented with RUE swelling and pain and diagnosed to have RUE cellulitis and abscess at site of IVDU, underwent I&D in the emergency room, patient placed on IV vancomycin and Zosyn blood cultures x2 are negative, the significant improvement in right upper extremity swelling and redness therefore he is being discharged home on 5 more days of Keflex and doxycycline. alcohol dependence with withdrawal patient treated with phenobarb protocol, and has been strongly advised to abstain from alcohol. opiate dependence with withdrawal patient met with addiction team and decline outpatient referrals for methadone Time Spent with Patient Time attestation: Total time spent providing and/or coordinating discharge services: Discharge coordination time: Greater than 30 minutes Quality: Safe Use of Opioids Does Pt have an Active Cancer Diagnosis on the Problem List?: No Quality: Stroke Does the patient have a stroke diagnosis?: No Physical Exam Vital Signs: Vital Signs: Last Vital Signs Temp 98.7 F 10/02/21 03:34 Pulse 50 10/02/21 03:34 Resp 18 10/02/21 03:34 BP 167/75 H 10/02/21 03:34 Pulse Ox 98 10/02/21 03:34 O2 Del Method 10/02/21 03:34 BMI result Body Mass Index 19.3 Const: Other: General: alert,oriented x 3, in no distress Resp:? CTA bilateral, no accessory muscles used CVS: S1,S2,RRR GI: soft, non tender, non distended right upper extremity swelling and erythema resolved, no drainage at site of I&D Neuro:? motor grossly intact, alert Psych: appropriate affect, appropriate insight? DS: Data Data Completed and Pending Labs on day of discharge: Laboratory Results - last 24 hr 10/01/21 10/02/21 10/02/21 17:34 05:51 05:51 WBC 13.6 H RBC 4.73 D Hgb 13.7 L D Hct 40.0 L MCV 84.6 MCH 29.0 MCHC 34.3 RDW 13.2 Plt Count 447 H D MPV 8.7 L Absolute Nucleated RBC 0.000 Nucleated RBC % (auto) 0.0 Sodium 131 L Potassium 4.2 Chloride 101 Carbon Dioxide 20 L Anion Gap 14 BUN 14 D Creatinine 0.92 Estim Creat Clear Calc 81.4 Estimated GFR > 60 Fasting Glucose 133 H Calcium 8.0 L D Vancomycin Trough 6.2 L Preliminary micro results at discharge 09/29/21 21:57 Blood Culture - Preliminary Blood - Venous No growth after 48 hours. 09/29/21 21:57 Blood Culture - Preliminary Blood - Venous No growth after 48 hours. Discharge Plan Discharge Patient Disposition: Home, Self-Care Discharge Diagnosis: right upper extremity cellulitis and abscess alcohol dependence with withdrawal opiate dependence with withdrawal Referrals: Physician,Unknown J [Primary Care Provider] - 1 Week Discharge Medications: New doxycycline hyclate 100 mg capsule 100 mg PO BID Qty: 10 0RF cephalexin 500 mg capsule 500 mg PO Q8H Qty: 15 0RF Discharge Orders: Discharge Order (Routine); Ordered 10/02/21 Ordered By: Ankit Ospina Diet: advance to usual diet Activity on Discharge: As tolerated Stand Alone Forms: Patient Portal Discharge page Care Plan Goals: alcohol abuse and withdrawal strongly recommend to abstain from alcohol right forearm cellulitis and abscess recommend to continue antibiotic as prescribed, strongly recommend to abstain from IV drug abuse Health Concerns: alcohol abuse/ opioid dependence Plan of Treatment: outpatient follow-up with primary care physician in 1-2 weeks Assessment: as per discharge summary Discharge Date/Time: 10/02/21 12:55
== END 2021-10-02 12:55 | disposition home or self-care (01) | DRG 383 ==
LOC: HO.ED 09-30 05:33 → HO.EDOVER 09-30 05:35 → HO.S3 09-30 13:17
PROVIDERS: Emergency Medicine; Internal Medicine; Admitting Provider Internal Medicine; Emergency Provider Emergency Medicine; Visit Provider Hospitalist
DX: L02.413 Cutaneous abscess of right upper limb (principal); F10.239 Alcohol dependence with withdrawal, unspecified; F17.210 Nicotine dependence, cigarettes, uncomplicated; Z20.822 Contact with and (suspected) exposure to COVID-19; F11.23 Opioid dependence with withdrawal; L03.113 Cellulitis of right upper limb; Z71.6 Tobacco abuse counseling; Z59.02 Unsheltered homelessness
CPT/HCPCS: 36415; 73200; 80048; 80053; 80202; 82565; 83605; 84484; 85025; 85027; 87040; 87635; 93005; 96365; 96367; 96375; 99218; 99285; J1650; J2270; J2543; J3370

== ENCOUNTER 2021-10-24 20:55 | Emergency (ER) | payer OTHER, SELFPAY ==
--- NOTE | ~2021-10-24 | CT_ITS ---
EXAMINATION: CT HEAD WITHOUT CONTRAST CLINICAL INFORMATION: Altered mental status COMPARISON: CT head 03/20/2021. TECHNIQUE: Contiguous axial imaging was performed from the skull base to vertex without intravenous administration of contrast. This CT examination was performed using dose optimization techniques as appropriate, variously including the following: *Automated exposure control *Adjustment of mA and/or kV according to patient size (this includes techniques or standardized protocols for targeted exams where dose is matched to indication/reason for exam; i.e. extremities or head) *Use of iterative reconstruction technique DLP: 781 mGy-cm FINDINGS: Mild diffuse commensurate prominence of ventricles and sulci is noted. No intrarenal hemorrhage, tumors or acute infarcts visualized. The orbits and globes are normal in appearance. Minimal mucosal thickening and/or retained secretions are noted within the right maxillary sinus. The mastoid air cells and middle ear cavities are clear. CT/CT head/brain wo con IMPRESSION: No acute intracranial abnormalities.
--- NOTE | ~2021-10-24 | XR_ITS ---
EXAMINATION: XR CHEST CLINICAL INFORMATION: Altered mental status COMPARISON: 03/20/2021 TECHNIQUE: Frontal view of the chest was obtained. FINDINGS: Cardiac leads overlie the chest. Metallic fragment over the midline. Right axillary surgical clips. Additional tiny radiopaque densities over the right upper thorax. The lungs are well expanded. Minimal opacity at the left base. No pleural effusion or pneumothorax. The cardiomediastinal silhouette is within normal limits. No acute osseous abnormality. XR/XR chest 1V IMPRESSION: Minimal left basilar opacity favoring atelectasis, though pneumonia not excluded.
[2021-10-24 21:03] VITALS: BP 150/81; BP 170/90; PULSE 55; PULSE 60; RESP 18; TEMP 36.5; O2SAT 98; O2SAT 99; BMI 19.3
--- NOTE | 2021-10-24 21:28 | ECG_ITS ---
Test Reason : OVERDOSE Blood Pressure : / mmHG Vent. Rate : 043 BPM Atrial Rate : 043 BPM P-R Int : 168 ms QRS Dur : 092 ms QT Int : 514 ms P-R-T Axes : 061 060 055 degrees QTc Int : 434 ms Marked sinus bradycardia Minimal voltage criteria for LVH, may be normal variant ( Sokolow-Bal ) Abnormal ECG When compared with ECG of 01-OCT-2021 00:44, Vent. rate has decreased BY 34 BPM Referred By: Raine Servin Electronically Signed By:Krishna Rodríguez
--- NOTE | 2021-10-24 21:34 | ED.OVERDOSE ---
HPI - Overdose General Chief Complaint: Overdose Stated Complaint: od Time Seen by Provider: 10/24/21 21:27 Source: EMS and old records reviewed Mode of arrival: EMS Limitations: altered mental status History of Present Illness MD complaint: other (altered mental status found sleeping in parking lot) Onset (ago): unknown Related Data Previous Rx's Medication Instructions Recorded cephalexin 500 mg capsule 500 mg PO Q8H #15 caps 10/02/21 doxycycline hyclate 100 mg capsule 100 mg PO BID #10 caps 10/02/21 Allergies Allergy/AdvReac Type Severity Reaction Status Date / Time No Known Drug Allergies Allergy Unknown UNKNOWN Verified 10/01/21 14:46 Review of Systems Review of Systems: ROS unable to be obtained due to altered mental status [facility] Past Medical History Attestation statement: The following information was validated with the patient. Medical History Alcohol abuse Opioid use disorder Surgical History (System 10/01/21 @ 14:46 by Jennie Ibarra) No pertinent past surgical history Family History Family History (System 10/01/21 @ 14:46 by Jennie Ibarra) Other No family history of coronary artery disease Social History Social History Household Members: None Housing: Homeless Do you presently have visiting nurse or other home services: No Alcohol intake: current Patient Tobacco Use Status: Current everyday Tobacco user Tobacco use type: Cigarette Cigarettes Per Day: 15 Substance Use Type: Crack/Cocaine and Marijuana Advance Directives: No Advance Directives Information Provided: No service: No Current occupational status: unemployed and disabled Physical Exam Vital Signs: Vital Signs: Last Vital Signs Temp 97.7 F 10/24/21 21:03 Pulse 55 10/24/21 21:03 Resp 18 10/24/21 21:03 BP 150/81 H 10/24/21 21:03 Pulse Ox 99 10/24/21 21:03 O2 Del Method 10/24/21 21:03 Oxygen Flow Rate 2 10/24/21 21:03 BMI result Body Mass Index 19.3 MDM - Overdose ECG Data Attestation: I personally reviewed and interpreted this ECG as follows: ECG interpretation date: 10/24/21 ECG interpretation time: 21:35 Interpretation: Rate: 43 Rhythm: sinus bradycardia [place]: normal , LVH Normal P waves. Normal KATIE. Normal QRS complex. ST T wave : normal no JASEN u waves noted qTC: normal prior studies: no acute ischemia The study has been interpreted contemporaneously by me. . Discharge Plan Discharge Prescriptions: No Action doxycycline hyclate 100 mg capsule 100 mg PO BID Qty: 10 0RF cephalexin 500 mg capsule 500 mg PO Q8H Qty: 15 0RF
--- NOTE | 2021-10-24 21:50 | ED_ITS ---
HPI - Altered Mental Status General Chief Complaint: Overdose Stated Complaint: od Time Seen by Provider: 10/24/21 21:27 Source: EMS and old records reviewed Mode of arrival: EMS Limitations: altered mental status History of Present Illness HPI narrative: found sleeping in parking lot reportedly given bystander narcan but no response, EMS gave 2mg narcan but patient still somnolent on arrival. complaint: altered mental status Onset (ago): unknown Severity: moderate Consistency of symptoms: constant Context: alcohol abuse, drug abuse and history of similar presentation Associated symptoms: denies other symptoms Treatments prior to arrival: other (no response to EMS narcan) Related Data Previous Rx's Medication Instructions Recorded cephalexin 500 mg capsule 500 mg PO Q8H #15 caps 10/02/21 doxycycline hyclate 100 mg capsule 100 mg PO BID #10 caps 10/02/21 Allergies Allergy/AdvReac Type Severity Reaction Status Date / Time No Known Drug Allergies Allergy Unknown UNKNOWN Verified 10/01/21 14:46 Review of Systems Review of Systems: ROS unable to be obtained due to altered mental status [facility] Past Medical History Source: old records reviewed Medical History Alcohol abuse Opioid use disorder Surgical History (System 10/01/21 @ 14:46 by Jennie Ibarra) No pertinent past surgical history Family History Family History (System 10/01/21 @ 14:46 by Jennie Ibarra) Other No family history of coronary artery disease Social History Social History Household Members: None Housing: Homeless Do you presently have visiting nurse or other home services: No Alcohol intake: current Patient Tobacco Use Status: Current everyday Tobacco user Tobacco use type: Cigarette Cigarettes Per Day: 15 Substance Use Type: Crack/Cocaine and Marijuana Advance Directives: No Advance Directives Information Provided: No service: No Current occupational status: unemployed and disabled Physical Exam ED Vital Signs: Vital Signs - 24 hr 10/24/21 21:03 10/25/21 00:49 Temperature 97.7 F Pulse Rate 55 57 Respiratory Rate 18 11 L Blood Pressure 150/81 H 148/89 H Pulse Oximetry 99 95 Oxygen Delivery Method Nasal Cannula Nasal Cannula Oxygen Flow Rate 3 Fraction of Inspired Oxygen 24 BMI result Body Mass Index 19.3 Appearance: yawning at times, yells to painful stimuli but otherwise not responding. mild acute distress. Eyes: Pupils equal, round and reactive to light. 2mm ENT: Pharynx normal. abrasion appears old on forehead Neck: Normal inspection. Neck supple. CVS: bradycardic heart rate and rhythm. Pulses normal. Respiratory: No respiratory distress. Breath sounds normal. Abdomen: Soft and nontender. Skin: Skin warm and dry. Normal skin color. Normal skin turgor. track de [place] rosa noted both arms Extremities: No lower extremity edema. Neuro: somnolent No motor deficit. No sensory deficit. Course Course Course Narrative: afebrile, no WBC count, negative lactic acidosis, procalcitonin low, possible small infiltrate but that is not causing his symptoms suspect some other substance on board other than just fentanyl/heroin will continue to observe in ED until more awake Patient placed in physician observation at 1147pm. The indication for observation is that the patient needs more time to clinically improve and metabolize substances. At this time the patient is woken up by tactile stimuli VS stable, lungs clear, CV RRR, abd nontender somnolent likely due to patient testing positive for 6/8 out substance on tox screen patient already had bout of diarrhea, doubt he would be able to take in oral lactulose and i'm not sure he'd be able to rectally retain lactulose - will r epeat ammonia ammonia 50 MDM - Altered Mental Status MDM Narrative Medical decision making narrative: 56 yo male with hx of opiate abuse, IVDA, alcohol abuse here with nystagmus, no response to narcan ?ETOH intoxication, will obtain labs, hydrate, CT head for ICH, tox labs, CXR for aspiration - dispo per results and findings. Lab Data Result diagrams: 10/24/21 21:34 10/24/21 21:34 Labs: Lab Results 10/24/21 10/24/21 10/24/21 Range/Units 21:34 21:34 21:34 WBC 9.6 (4.8-10.8) X10*3/uL RBC 4.43 L (4.60-5.80) X10*6/uL Hgb 12.6 L (14.0-18.0) g/dl Hct 38.2 L (42.0-52.0) % MCV 86.2 (80.0-98.0) fL MCH 28.4 (27.0-33.0) pg MCHC 33.0 (31.0-36.0) g/dl RDW 13.7 (11.0-16.0) % Plt Count 299 D (160-400) X10*3/uL MPV 8.2 L (9.4-12.4) fL Immature Gran % (Auto) 0.4 (0.0-0.4) % Neut % (Auto) 43.7 L (45-73) % Lymph % (Auto) 47.5 H (20-40) % [place] % (Auto) 6.3 (2-11) % Eos % (Auto) 1.5 (0-4) % Baso % (Auto) 0.6 (0-2) % Lymph # (Auto) 4.6 (1.2-4.9) X10*3/uL [place] # (Auto) 0.6 (0.1-1.2) X10*3/uL Eos # (Auto) 0.1 (0.0-0.4) X10*3/uL Baso # (Auto) 0.1 (0.0-0.2) X10*3/uL Abs Immat Gran (auto) 0.04 H (0.00-0.03) X10*3/uL Absolute Neuts (auto) 4.2 (2.0-8.3) x10*3/uL Absolute Nucleated RBC 0.000 (0.0-0.012) X10*3/uL Nucleated RBC % (auto) 0.0 (0.0-0.2) /100WBC PT 11.1 (10.0-13.1) SEC INR 1.0 (0.9-1.1) VBG pH (7.32-7.43) VBG pCO2 mmHg VBG pO2 mmHg VBG HCO3 (22-26) mmol/L VBG O2 Saturation % VBG Base Excess mmol/L Sodium 141 (135-145) mmol/L Potassium 3.2 L D (3.3-5.1) mmol/L Chloride 104 (96-108) mmol/L Carbon Dioxide 28 (22-29) mmol/L Anion Gap 12 (12-20) BUN 10 (9-16) mg/dL Creatinine 0.78 (0.5-1.4) mg/dL Estim Creat Clear Calc 83.3 Estimated GFR > 60 Random Glucose 135 H (60-115) mg/dL Lactic Acid (0.5-2.0) mmol/L Calcium 9.1 D (8.4-10.2) mg/dL Magnesium 1.4 L* (1.6-2.6) mg/dL Total Bilirubin 0.5 (0.0-1.0) mg/dL Direct Bilirubin 0.3 (0.0-0.5) mg/dL AST 68 H (5-37) U/L ALT 51 H (0-40) U/L Alkaline Phosphatase 157 H D (39-117) U/L Ammonia (13-55) umol/L Total Creatine Kinase 115 D (38-174) U/L Troponin I High Sens (<3.5-35.0) ng/L B-Natriuretic Peptide (<100) pg/mL Total Protein 7.6 (6.5-8.0) g/dL Albumin 3.6 (3.5-5.0) g/dL Lipase 66 (8-78) U/L Procalcitonin ng/mL Urine Color Urine Appearance Urine pH (5.0-8.0) Ur Specific [place] (1.005-1.025) Urine Protein (NEG-TRACE) MG/DL Urine Glucose (UA) (NEG) MG/DL Urine Ketones (NEG) MG/DL Urine Blood (NEG) Urine Nitrite (NEG) Ur Leukocyte Esterase (NEG) Salicylates < 5.0 L (15-30) mg/dL Urine Opiates Screen (Not Detect) Urine Fentanyl Screen (Not Detect) Acetaminophen < 1 (<30) mcg/mL Ur Barbiturates Screen (Not Detect) Ur Phencyclidine Scrn (Not Detect) Ur Amphetamines Screen (Not Detect) U Benzodiazepines Scrn (Not Detect) Urine Cocaine Screen (Not Detect) U Marijuana (THC) Screen (Not Detect) Ethyl Alcohol < 10 mg/dL COVID-19 (RAE) (Negative) COVID-19 Clin Com 10/24/21 10/24/21 10/24/21 Range/Units 21:34 21:35 21:35 WBC (4.8-10.8) X10*3/uL RBC (4.60-5.80) X10*6/uL Hgb (14.0-18.0) g/dl Hct (42.0-52.0) % MCV (80.0-98.0) fL MCH (27.0-33.0) pg MCHC (31.0-36.0) g/dl RDW (11.0-16.0) % Plt Count (160-400) X10*3/uL MPV (9.4-12.4) fL Immature Gran % (Auto) (0.0-0.4) % Neut % (Auto) (45-73) % Lymph % (Auto) (20-40) % [place] % (Auto) (2-11) % Eos % (Auto) (0-4) % Baso % (Auto) (0-2) % Lymph # (Auto) (1.2-4.9) X10*3/uL [place] # (Auto) (0.1-1.2) X10*3/uL Eos # (Auto) (0.0-0.4) X10*3/uL Baso # (Auto) (0.0-0.2) X10*3/uL Abs Immat Gran (auto) (0.00-0.03) X10*3/uL Absolute Neuts (auto) (2.0-8.3) x10*3/uL Absolute Nucleated RBC (0.0-0.012) X10*3/uL Nucleated RBC % (auto) (0.0-0.2) /100WBC PT (10.0-13.1) SEC INR (0.9-1.1) VBG pH (7.32-7.43) VBG pCO2 mmHg VBG pO2 mmHg VBG HCO3 (22-26) mmol/L VBG O2 Saturation % VBG Base Excess mmol/L Sodium (135-145) mmol/L Potassium (3.3-5.1) mmol/L Chloride (96-108) mmol/L Carbon Dioxide (22-29) mmol/L Anion Gap (12-20) BUN (9-16) mg/dL Creatinine (0.5-1.4) mg/dL Estim Creat Clear Calc Estimated GFR Random Glucose (60-115) mg/dL Lactic Acid 1.3 (0.5-2.0) mmol/L Calcium (8.4-10.2) mg/dL Magnesium (1.6-2.6) mg/dL Total Bilirubin (0.0-1.0) mg/dL Direct Bilirubin (0.0-0.5) mg/dL AST (5-37) U/L ALT (0-40) U/L Alkaline Phosphatase (39-117) U/L Ammonia (13-55) umol/L Total Creatine Kinase (38-174) U/L Troponin I High Sens < 3.5 (<3.5-35.0) ng/L B-Natriuretic Peptide 24 (<100) pg/mL Total Protein (6.5-8.0) g/dL Albumin (3.5-5.0) g/dL Lipase (8-78) U/L Procalcitonin 0.11 ng/mL Urine Color Urine Appearance Urine pH (5.0-8.0) Ur Specific [place] (1.005-1.025) Urine Protein (NEG-TRACE) MG/DL Urine Glucose (UA) (NEG) MG/DL Urine Ketones (NEG) MG/DL Urine Blood (NEG) Urine Nitrite (NEG) Ur Leukocyte Esterase (NEG) Salicylates (15-30) mg/dL Urine Opiates Screen (Not Detect) Urine Fentanyl Screen (Not Detect) Acetaminophen (<30) mcg/mL Ur Barbiturates Screen (Not Detect) Ur Phencyclidine Scrn (Not Detect) Ur Amphetamines Screen (Not Detect) U Benzodiazepines Scrn (Not Detect) Urine Cocaine Screen (Not Detect) U Marijuana (THC) Screen (Not Detect) Ethyl Alcohol mg/dL COVID-19 (RAE) (Negative) COVID-19 Clin Com 10/24/21 10/24/21 10/24/21 Range/Units 22:24 22:24 22:28 WBC (4.8-10.8) X10*3/uL RBC (4.60-5.80) X10*6/uL Hgb (14.0-18.0) g/dl Hct (42.0-52.0) % MCV (80.0-98.0) fL MCH (27.0-33.0) pg MCHC (31.0-36.0) g/dl RDW (11.0-16.0) % Plt Count (160-400) X10*3/uL MPV (9.4-12.4) fL Immature Gran % (Auto) (0.0-0.4) % Neut % (Auto) (45-73) % Lymph % (Auto) (20-40) % [place] % (Auto) (2-11) % Eos % (Auto) (0-4) % Baso % (Auto) (0-2) % Lymph # (Auto) (1.2-4.9) X10*3/uL [place] # (Auto) (0.1-1.2) X10*3/uL Eos # (Auto) (0.0-0.4) X10*3/uL Baso # (Auto) (0.0-0.2) X10*3/uL Abs Immat Gran (auto) (0.00-0.03) X10*3/uL Absolute Neuts (auto) (2.0-8.3) x10*3/uL Absolute Nucleated RBC (0.0-0.012) X10*3/uL Nucleated RBC % (auto) (0.0-0.2) /100WBC PT (10.0-13.1) SEC INR (0.9-1.1) VBG pH 7.37 (7.32-7.43) VBG pCO2 39 mmHg VBG pO2 45 mmHg VBG HCO3 23 (22-26) mmol/L VBG O2 Saturation 74.0 % VBG Base Excess -1.6 mmol/L Sodium (135-145) mmol/L Potassium (3.3-5.1) mmol/L Chloride (96-108) mmol/L Carbon Dioxide (22-29) mmol/L Anion Gap (12-20) BUN (9-16) mg/dL Creatinine (0.5-1.4) mg/dL Estim Creat Clear Calc Estimated GFR Random Glucose (60-115) mg/dL Lactic Acid (0.5-2.0) mmol/L Calcium (8.4-10.2) mg/dL Magnesium (1.6-2.6) mg/dL Total Bilirubin (0.0-1.0) mg/dL Direct Bilirubin (0.0-0.5) mg/dL AST (5-37) U/L ALT (0-40) U/L Alkaline Phosphatase (39-117) U/L Ammonia 73 H (13-55) umol/L Total Creatine Kinase (38-174) U/L Troponin I High Sens (<3.5-35.0) ng/L B-Natriuretic Peptide (<100) pg/mL Total Protein (6.5-8.0) g/dL Albumin (3.5-5.0) g/dL Lipase (8-78) U/L Procalcitonin ng/mL Urine Color Urine Appearance Urine pH (5.0-8.0) Ur Specific [place] (1.005-1.025) Urine Protein (NEG-TRACE) MG/DL Urine Glucose (UA) (NEG) MG/DL Urine Ketones (NEG) MG/DL Urine Blood (NEG) Urine Nitrite (NEG) Ur Leukocyte Esterase (NEG) Salicylates (15-30) mg/dL Urine Opiates Screen (Not Detect) Urine Fentanyl Screen (Not Detect) Acetaminophen (<30) mcg/mL Ur Barbiturates Screen (Not Detect) Ur Phencyclidine Scrn (Not Detect) Ur Amphetamines Screen (Not Detect) U Benzodiazepines Scrn (Not Detect) Urine Cocaine Screen (Not Detect) U Marijuana (THC) Screen (Not Detect) Ethyl Alcohol mg/dL COVID-19 (RAE) Negative (Negative) COVID-19 Clin Com See Note 10/25/21 10/25/21 10/25/21 Range/Units 00:13 00:13 01:42 WBC (4.8-10.8) X10*3/uL RBC (4.60-5.80) X10*6/uL Hgb (14.0-18.0) g/dl Hct (42.0-52.0) % MCV (80.0-98.0) fL MCH (27.0-33.0) pg MCHC (31.0-36.0) g/dl RDW (11.0-16.0) % Plt Count (160-400) X10*3/uL MPV (9.4-12.4) fL Immature Gran % (Auto) (0.0-0.4) % Neut % (Auto) (45-73) % Lymph % (Auto) (20-40) % [place] % (Auto) (2-11) % Eos % (Auto) (0-4) % Baso % (Auto) (0-2) % Lymph # (Auto) (1.2-4.9) X10*3/uL [place] # (Auto) (0.1-1.2) X10*3/uL Eos # (Auto) (0.0-0.4) X10*3/uL Baso # (Auto) (0.0-0.2) X10*3/uL Abs Immat Gran (auto) (0.00-0.03) X10*3/uL Absolute Neuts (auto) (2.0-8.3) x10*3/uL Absolute Nucleated RBC (0.0-0.012) X10*3/uL Nucleated RBC % (auto) (0.0-0.2) /100WBC PT (10.0-13.1) SEC INR (0.9-1.1) VBG pH (7.32-7.43) VBG pCO2 mmHg VBG pO2 mmHg VBG HCO3 (22-26) mmol/L VBG O2 Saturation % VBG Base Excess mmol/L Sodium (135-145) mmol/L Potassium (3.3-5.1) mmol/L Chloride (96-108) mmol/L Carbon Dioxide (22-29) mmol/L Anion Gap (12-20) BUN (9-16) mg/dL Creatinine (0.5-1.4) mg/dL Estim Creat Clear Calc Estimated GFR Random Glucose (60-115) mg/dL Lactic Acid (0.5-2.0) mmol/L Calcium (8.4-10.2) mg/dL Magnesium (1.6-2.6) mg/dL Total Bilirubin (0.0-1.0) mg/dL Direct Bilirubin (0.0-0.5) mg/dL AST (5-37) U/L ALT (0-40) U/L Alkaline Phosphatase (39-117) U/L Ammonia 50 (13-55) umol/L Total Creatine Kinase (38-174) U/L Troponin I High Sens (<3.5-35.0) ng/L B-Natriuretic Peptide (<100) pg/mL Total Protein (6.5-8.0) g/dL Albumin (3.5-5.0) g/dL Lipase (8-78) U/L Procalcitonin ng/mL Urine Color YELLOW Urine Appearance CLEAR Urine pH 6.5 (5.0-8.0) Ur Specific [place] 1.010 (1.005-1.025) Urine Protein NEG (NEG-TRACE) MG/DL Urine Glucose (UA) NEG (NEG) MG/DL Urine Ketones NEG (NEG) MG/DL Urine Blood NEG (NEG) Urine Nitrite NEG (NEG) Ur Leukocyte Esterase NEG (NEG) Salicylates (15-30) mg/dL Urine Opiates Screen POSITIVE H (Not Detect) Urine Fentanyl Screen POSITIVE H (Not Detect) Acetaminophen (<30) mcg/mL Ur Barbiturates Screen POSITIVE H (Not Detect) Ur Phencyclidine Scrn Not Detected (Not Detect) Ur Amphetamines Screen Not Detected (Not Detect) U Benzodiazepines Scrn POSITIVE H (Not Detect) Urine Cocaine Screen POSITIVE H (Not Detect) U Marijuana (THC) Screen POSITIVE H (Not Detect) Ethyl Alcohol mg/dL COVID-19 (RAE) (Negative) COVID-19 Clin Com Discharge Plan Discharge Clinical Impression: Hypomagnesemia, Acute hypokalemia, Active substance abuse Altered mental status Qualifiers: Altered mental status type: somnolence Qualified Code(s): R40.0 - Somnolence Pneumonia Qualifiers: Pneumonia type: due to unspecified organism Laterality: left Lung location: lower lobe of lung Qualified Code(s): J18.9 - Pneumonia, unspecified organism Patient Disposition: Still a Patient Prescriptions: No Action doxycycline hyclate 100 mg capsule 100 mg PO BID Qty: 10 0RF cephalexin 500 mg capsule 500 mg PO Q8H Qty: 15 0RF
[2021-10-24] MEDS: ondansetron HCL 4 MG/2 ML VIAL IVPUSH (22:01)
[2021-10-24] MEDS: Naloxone HCl 2 MG/2 ML SYRINGE IM (22:02)
[2021-10-24] MEDS: Naloxone HCl Nasal 4 MG SPRAY NOSTRILALT (22:02)
[2021-10-24] MEDS: 0.9 % Sodium Chloride 1,000 ML 999 ML IVCONT (22:03)
[2021-10-24 22:07] LABS: MANUAL DIFF FLAG NO
[2021-10-24 22:16] LABS: Basophils Absolute Auto 0.1 X10*3/uL (0.0-0.2); Basophils Percent Auto 0.6 % (0-2); Eosinophils Absolute Auto 0.1 X10*3/uL (0.0-0.4); Eosinophils Percent Auto 1.5 % (0-4); Hematocrit 38.2 % (42.0-52.0); Hemoglobin 12.6 g/dl (14.0-18.0); Imm Gran Abs Auto 0.04 X10*3/uL (0.00-0.03); Imm Gran Pct Auto 0.4 % (0.0-0.4); Lymphocytes Absolute Auto 4.6 X10*3/uL (1.2-4.9); Lymphocytes Percent Auto 47.5 % (20-40); Mean Corpuscular Hemoglobin 28.4 pg (27.0-33.0); Mean Corpuscular Volume 86.2 fL (80.0-98.0); Mean Platelet Volume 8.2 fL (9.4-12.4); Monocytes Absolute Auto 0.6 X10*3/uL (0.1-1.2); Monocytes Percent Auto 6.3 % (2-11); Neutrophils Absolute Auto 4.2 x10*3/uL (2.0-8.3); Neutrophils Percent Auto 43.7 % (45-73); Platelet Count 299 X10*3/uL (160-400); Red Blood Count 4.43 X10*6/uL (4.60-5.80); Red Cell Distribution Width 13.7 % (11.0-16.0); White Blood Count 9.6 X10*3/uL (4.8-10.8)
[2021-10-24 22:18] LABS: Prothrombin Time 11.1 SEC (10.0-13.1)
[2021-10-24 22:24] LABS: Lactic Acid 1.3 mmol/L (0.5-2.0)
[2021-10-24 22:34] LABS: VBG Base Excess -1.6 mmol/L; VBG HCO3 23 mmol/L (22-26); VBG pCO2 39 mmHg; VBG pH 7.37 (7.32-7.43); VBG pO2 45 mmHg
[2021-10-24 22:34] LABS: Venous Blood Gas Refer to POC result
[2021-10-24 22:35] LABS: B Type Natriuretic Peptide 24 pg/mL (<100); Troponin-I High Sensitivity < 3.5 ng/L (<3.5-35.0)
[2021-10-24 22:35] LABS: Acetaminophen LAB < 1 mcg/mL (<30); Alanine Aminotransferase 51 U/L (0-40); Albumin Level 3.6 g/dL (3.5-5.0); Alkaline Phosphatase 157 U/L (39-117); Anion Gap 12 (12-20); Aspartate Amino Transferase 68 U/L (5-37); Bilirubin Direct 0.3 mg/dL (0.0-0.5); Bilirubin Total 0.5 mg/dL (0.0-1.0); Blood Urea Nitrogen 10 mg/dL (9-16); Calcium 9.1 mg/dL (8.4-10.2); Carbon Dioxide 28 mmol/L (22-29); Chloride 104 mmol/L (96-108); Creatinine Clr Calc Pharmacy 83.3; Estimated Glomerular Filt Rate > 60; Ethanol < 10 mg/dL; Glucose Random 135 mg/dL (60-115); Lipase 66 U/L (8-78); Magnesium 1.4 mg/dL (1.6-2.6); Potassium 3.2 mmol/L (3.3-5.1); Salicylate < 5.0 mg/dL (15-30); Sodium 141 mmol/L (135-145); Total Protein 7.6 g/dL (6.5-8.0)
[2021-10-24 22:39] LABS: COVID-19 Test Negative (Negative); IDNOW Serial# 55D5AD1C
[2021-10-24 22:43] LABS: Ammonia 73 umol/L (13-55)
[2021-10-24 23:13] LABS: Procalcitonin 0.11 ng/mL
[2021-10-24] MEDS: cefTRIAXone sodium 1 GM in 0.9 % Sodium Chloride 50 ML IV (23:35)
[2021-10-24] MEDS: Azithromycin 500 MG in 0.9 % Sodium Chloride 250 ML 125 MG IV (23:37)
[2021-10-24] MEDS: Thiamine HCL 200 MG in 0.9 % Sodium Chloride 100 ML 204 MG IV (23:41)
[2021-10-24] MEDS: Magnesium Sulfate/H2O 2 GM/50 ML PIGGYBACK IV (23:41)
[2021-10-25 00:21] LABS: Appearance Urine CLEAR; Color Urine YELLOW; Glucose Urine UA NEG (NEG); Leukocyte Esterase Urine NEG (NEG); Nitrite Urine NEG (NEG); PH 6.5 (5.0-8.0); Urine Blood NEG (NEG); Urine Ketones NEG (NEG); Urine Protein NEG (NEG-TRACE)
[2021-10-25] MEDS: Potassium Chloride/H20 10 MEQ/100 ML PIGGYBACK 100 MEQ IV ×2 (00:23)
[2021-10-25 00:40] LABS: Amphetamine Screen Urine Not Detected (Not Detect); Barbiturates, Urine POSITIVE (Not Detect); Benzodiazepines Screen Urine POSITIVE (Not Detect); Cannabinoid Screen Urine POSITIVE (Not Detect); Cocaine Screen Urine POSITIVE (Not Detect); Fentanyl, urine POSITIVE (Not Detect); Opiate Screen Urine POSITIVE (Not Detect); Phencyclidine Screen Urine Not Detected (Not Detect)
[2021-10-25 00:49] VITALS: BP 148/89; PULSE 57; RESP 11; O2SAT 95
[2021-10-25 01:53] LABS: Ammonia 50 umol/L (13-55)
[2021-10-25 03:52] VITALS: BP 150/90; PULSE 46; RESP 34; O2SAT 96
[2021-10-25 04:48] VITALS: BP 153/82; PULSE 47; RESP 11; O2SAT 98
[2021-10-25 09:31] VITALS: BP 166/90; PULSE 45; RESP 19; TEMP 36.5; O2SAT 97
--- NOTE | 2021-10-25 11:04 | MHC.RECOVSUP ---
Addendum entered by Neymar Lopez [facility] 10/25/21 12:45: Patient declined SUDE and did not wish to speak to this specifications writer. Original Note: Recovery Support note: This specifications writer and PA attempted to wake patient for SUDE. Patient unable to engage in consultation at this time, continues to sleep. This specifications writer offered detox and patient did not respond. This specifications writer will reattempt SUDE when patient is more engaged.
--- NOTE | 2021-10-25 12:24 | PC.NURSE ---
jose f from care team, multiple rns and techs attempting to help pt with detox- pt refusing to speak to anyone. pt shaking his head yes when asked if he wanted to be dc. provider aware. plan for dc.
== END 2021-10-25 13:00 | disposition home or self-care (01) ==
PROVIDERS: Emergency Provider Emergency Medicine
DX: E83.42 Hypomagnesemia (principal); E87.6 Hypokalemia; F19.10 Other psychoactive substance abuse, uncomplicated; R40.0 Somnolence; J18.9 Pneumonia, unspecified organism; Z20.822 Contact with and (suspected) exposure to COVID-19; F17.200 Nicotine dependence, unspecified, uncomplicated; Z79.899 Other long term (current) drug therapy
CPT/HCPCS: 36415; 70450; 71045; 80048; 80076; 80143; 80179; 80307; 81003; 82077; 82140; 82550; 82803; 83605; 83690; 83735; 83880; 84145; 84484; 85025; 85610; 87040; 87635; 93005; 96361; 96365; 96366; 96372; 96375; 99284; J0456; J0696; J2405; J3411; J3475

== ENCOUNTER 2021-11-06 23:34 | Emergency (ER) | payer OTHER, SELFPAY ==
--- NOTE | ~2021-11-06 | CT_ITS ---
EXAMINATION: CT HEAD WITHOUT CONTRAST CLINICAL INFORMATION: Pain COMPARISON: 10/24/2021 TECHNIQUE: Contiguous axial imaging was performed from the skull base to vertex without intravenous administration of contrast. This CT examination was performed using dose optimization techniques as appropriate, variously including the following: *Automated exposure control *Adjustment of mA and/or kV according to patient size (this includes techniques or standardized protocols for targeted exams where dose is matched to indication/reason for exam; i.e. extremities or head) *Use of iterative reconstruction technique DLP: 776 mGy-cm FINDINGS: There is no evidence of acute intracranial hemorrhage or territorial infarction. No abnormal mass effect or midline shift is seen. [place] to white matter differentiation is well preserved. No extra-axial fluid collections are identified. The ventricles are normal in size. There is no abnormal attenuation within the brain parenchyma. The osseous structures and soft tissues are normal. There is mucosal thickening of the right maxillary sinus and anterior ethmoid air cells. The mastoid air cells are well-aerated. CT/CT head/brain wo con IMPRESSION: No acute intracranial pathology.
[2021-11-07 00:32] VITALS: BP 130/85; PULSE 73; RESP 14; TEMP 37.1; O2SAT 97; BMI 20.9
[2021-11-07 03:20] VITALS: BP 139/87; PULSE 69; RESP 15; TEMP 37.1; O2SAT 98
--- NOTE | 2021-11-07 03:22 | ED_ITS ---
HPI - Fall General Chief Complaint: Dizziness Stated Complaint: Fall/Drug Use Time Seen by Provider: 11/07/21 00:36 Source: patient and old records reviewed Mode of arrival: ambulatory Limitations: other (poor historian, slightly rude ) History of Present Illness complaint: fall Onset (ago): unknown Fall from: standing Fall witnessed: no Place fall occurred: street Loss of consciousness: unsure Prolonged down time: no Symptoms prior to fall: none Context: other (states when he uses drugs he falls over sometimes) Location of injury: head Severity: mild Quality: other (denies pain) Associated symptoms (after fall): other (has skin abrasion to left eyebrow area states when he does heroin he falls forward) Related Data Previous Rx's Medication Instructions Recorded cephalexin 500 mg capsule 500 mg PO Q8H #15 caps 10/02/21 doxycycline hyclate 100 mg capsule 100 mg PO BID #10 caps 10/02/21 amoxicillin 875 mg-potassium 1 tab PO BID #14 tabs 10/25/21 clavulanate 125 mg tablet Allergies Allergy/AdvReac Type Severity Reaction Status Date / Time No Known Drug Allergies Allergy Unknown UNKNOWN Verified 10/01/21 14:46 Review of Systems Review of Systems: Constitutional : No Fever, No Chills, No Fatigue ENT/Mouth : No sore throat, No Rhinorrhea Eyes: No Eye Pain, No Swelling, No Redness Cardiovascular : No Chest Pain, No SOB, No Dyspnea on Exertion Respiratory : No Cough, No Sputum Gastrointestinal : No Nausea, No Vomiting, No Diarrhea, No abdominal Pain Genitourinary : No Dysuria, No Urinary Frequency, No Hematuria, Musculoskeletal : No joint pain, No Myalgias, No Joint Swelling Skin : No Skin Lesions, No rash, pos abrasion Neuro : No Weakness, No Numbness, No Dizziness, no Headache Psych : No Anxiety/Panic, No Depression Heme/Lymph: No Bruising, No Bleeding,No Lymphadenopathy Endocrine : No Polyuria, No Polydipsia All other systems reviewed and are negative [facility] [place] Past Medical History Attestation statement: The following information was validated with the patient. Medical History Alcohol abuse Opioid use disorder Surgical History (System 10/01/21 @ 14:46 by Jennie Ibarra) No pertinent past surgical history Family History Family History (System 10/01/21 @ 14:46 by Jennie Ibarra) Other No family history of coronary artery disease Social History Social History Household Members: None Housing: Homeless Do you presently have visiting nurse or other home services: No Alcohol intake: unknown Patient Tobacco Use Status: Current everyday Tobacco user Tobacco use type: Cigarette Cigarettes Per Day: 15 Use of substances other than those prescribed or required for medical reasons: Yes Substance Use Type: Heroin Substance Use Frequency: Chronic Longstanding Advance Directives: No Advance Directives Information Provided: No service: No Current occupational status: unemployed and disabled Physical Exam Vital Signs: Vital Signs: Last Vital Signs Temp 97.0 F 11/07/21 03:49 Pulse 69 11/07/21 03:49 Resp 16 11/07/21 03:49 BP 146/89 H 11/07/21 03:49 Pulse Ox 98 11/07/21 03:49 O2 Del Method 11/07/21 03:49 BMI result Body Mass Index 20.9 Appearance: Somnolent Oriented X3. No acute distress. Thin appearing Eyes: Pupils equal, round and reactive to light. ENT: Pharynx normal. L eyebrow area abrasion and dried blood noted Neck: Normal inspection. Neck supple. CVS: Normal heart rate and rhythm. Pulses normal. Respiratory: No respiratory distress. Breath sounds normal. Abdomen: Soft and non=tender. Skin: Skin warm and dry. Normal skin color. Normal skin turgor. Extremities: No lower extremity edema. No calf ttp Neuro: Oriented X 3. No motor deficit. No sensory deficit. Course Course Course Narrative: Physician observation started at 409am. Patient placed in physician observation because the patient needed more time for CARE team to help with detox. At the time observation was started the patient's vitals were stable, patient is somnolent but easily woken he is oriented, Neuro: nonfocal, CV RRR, Lungs clear MDM - Fall MDM Narrative Medical decision making narrative: 56 yo male with hx of substance abuse here with c/o head injury after fall while using - no other complaints at this time will obtain head CT to r/o trauma has no neck pain. He is not sure he wants detox and isn't sure he wants to be started on substance abuse treatment will refer to CARE team after CT head. Lab Data Labs: Lab Results 11/07/21 Range/Units 03:41 COVID-19 (RAE) Negative (Negative) COVID-19 Clin Com See Note Discharge Plan Discharge Clinical Impression: Fall, Abrasion, Opiate abuse, continuous Patient Disposition: Still a Patient Prescriptions: No Action doxycycline hyclate 100 mg capsule 100 mg PO BID Qty: 10 0RF cephalexin 500 mg capsule 500 mg PO Q8H Qty: 15 0RF amoxicillin-pot clavulanate 875-125 mg tablet 1 tab PO BID Qty: 14 0RF
[2021-11-07 03:49] VITALS: BP 146/89; PULSE 69; RESP 16; TEMP 36.1; O2SAT 98
[2021-11-07 04:01] LABS: COVID-19 Test Negative (Negative)
--- NOTE | 2021-11-07 05:28 | PC.NURSE ---
BEVERLY VACA SAID THAT PATIENT DOES NOT NEED TO BE TUBE WINDER HAND .
[2021-11-07 05:32] VITALS: BP 140/85; PULSE 69; RESP 16; TEMP 36.2; O2SAT 98
[2021-11-07 08:24] VITALS: BP 140/72; PULSE 66; RESP 16; O2SAT 99
--- NOTE | 2021-11-07 08:25 | PC.NURSE ---
Pt is sleeping and minimally aroused to verbal stimuli. Alert and oriented. Refuses to answer questions at this time. Lung sounds: Wheezes on left lower lobe, clear sounds on the right. No SOB/PARADISE noted. Heart sounds are regular. Active bowel sounds. Bruising/abrasion on left side of face, above the eyebrow/christianity area. Pt aware of plan of care. MD aware.
--- NOTE | 2021-11-07 10:10 | PC.NURSE ---
pt oob took up his belongs and amb (i) gait steady out of er. pt is lucid. aware..
== END 2021-11-07 10:30 | disposition left against medical advice (07) ==
PROVIDERS: Emergency Provider Emergency Medicine
DX: S00.212A Abrasion of left eyelid and periocular area, initial encounter (principal); W01.0XXA Fall on same level from slipping, tripping and stumbling without subsequent striking against object, initial encounter; R42 Dizziness and giddiness; F11.10 Opioid abuse, uncomplicated; F10.10 Alcohol abuse, uncomplicated; F17.210 Nicotine dependence, cigarettes, uncomplicated; Z20.822 Contact with and (suspected) exposure to COVID-19; Y93.9 Activity, unspecified; Y92.480 Sidewalk as the place of occurrence of the external cause; Y99.9 Unspecified external cause status
CPT/HCPCS: 70450; 87635; 99284

== ENCOUNTER 2022-06-08 19:15 | Emergency (ER) | payer OTHER, SELFPAY ==
[2022-06-08 19:22] VITALS: BP 153/93; PULSE 65; RESP 16; TEMP 36.9; O2SAT 97; BMI 19.8
--- NOTE | 2022-06-08 19:38 | ED.PSYCH ---
HPI - Psych General Chief Complaint: Psychiatric Symptoms Stated Complaint: CRISIS,SI,HALUCINATING,HIGH BP PER EMS Time Seen by Provider: 06/08/22 19:32 Source: family and EMS Mode of arrival: EMS Limitations: other (under the influence of drugs poor historian) History of Present Illness HPI Narrative: 56-year-old homeless male with a history of chronic substance abuse brought in via EMS for SI, HI and hallucinations. Patient is and coherent but is having difficulty explaining the timeline of his symptoms. Patient states he has thoughts to harm himself and others but no plans to do so. Patient states he has been hearing voices in his head, seeing black figures in front of him the are there, and having tactile hallucinations as well. Patient says that he did cocaine, dope and smoked marijuana today at 14:30. Smokes cigarettes occasionally. Denies any alcohol use. Patient is homeless but states he has been occasionally sleeping in a [facility]. Patient denies chest pain, SOB, headaches, nausea, vomiting, diarrhea. No medical complaints. Related Data Home Medications Medication Instructions Recorded Confirmed No Known Home Meds 06/08/22 06/08/22 Allergies Allergy/AdvReac Type Severity Reaction Status Date / Time No Known Drug Allergies Allergy Unknown UNKNOWN Verified 10/01/21 14:46 Review of Systems Review of Systems: Constitutional : No Fever, No Chills ENT/Mouth : No Ear Pain, No Nasal Congestion, No sore throat Eyes: No Eye Pain, No Swelling, No Redness Cardiovascular : No Chest Pain, No SOB Respiratory : No Cough, No Sputum, No Dyspnea Gastrointestinal : No Nausea, No Vomiting, No Diarrhea, No Hematochezia, No Melena Genitourinary : No Dysuria, No Urinary Frequency, No Hematuria Musculoskeletal : No Myalgias Skin : No Skin Lesions, No rash Neuro : No Weakness, No Numbness, No Paresthesias, No Dizziness, No Headache Psych : positive Anxiety, positive Depression, positive SI/HI Heme/Lymph: No Lymphadenopathy Endocrine : No Polyuria, No Polydipsia All other systems reviewed and are negative Yes all other systems are reviewed and are negative [facility] Past Medical History Attestation statement: The following information was validated with the patient. Source: old records reviewed and nursing notes reviewed Medical History Alcohol abuse Opioid use disorder Surgical History No pertinent past surgical history Family History Family History Other No family history of coronary artery disease Social History Social History Household Members: None Housing: Homeless Do you presently have visiting nurse or other home services: No Alcohol intake: unknown Patient Tobacco Use Status: Current everyday Tobacco user Tobacco use type: Cigarette Cigarettes Per Day: 15 Substance Use Type: Heroin Advance Directives: No Advance Directives Information Provided: No service: No Current occupational status: unemployed and disabled Physical Exam Vital Signs: Vital Signs: Last Vital Signs Temp 98.4 F 06/08/22 19:22 Pulse 65 06/08/22 19:22 Resp 16 06/08/22 19:22 BP 153/93 H 06/08/22 19:22 Pulse Ox 97 06/08/22 19:22 O2 Del Method 06/08/22 19:22 BMI result Body Mass Index 19.8 vss Appearance: Alert.? Oriented X3.? No acute distress.? Head: Normocephalic, atraumatic, no step-offs or deformities Eyes: Pupils equal, round and reactive to light.? Neck: Normal inspection.? Neck supple.? CVS: Normal heart rate and rhythm.? Pulses normal.? Respiratory: No respiratory distress.? Breath sounds normal.? Abdomen: Soft and nontender.? Skin: Skin warm and dry.? Normal skin color.? Normal skin turgor.? Extremities: No lower extremity edema.? No calf ttp. 5/5 strength to bilateral upper and lower extremities Neuro: Oriented X 3.? No motor deficit.? No sensory deficit. CN 2-12 intact Course Reevaluation(s) Reevaluation #1: CBC appears to be around patient's baseline. Chemistry pending. UA without infection. Urine toxicology positive for opiates, fentanyl, cocaine, marijuana. Ethanol negative. Salicylates acetaminophen pending. Patient was evaluated by care team, will be re-evaluation tomorrow, care team will also work with the middle school football coach is for patient's care plan. At this time patient will be placed in observation, time observation was started patient common cooperative no acute distress will continue to monitor Time: 21:38 Medical Decision Making Medical Decision Making [facility] Narrative: 2135 56-year-old male presents with suicidal, homicidal ideation without plan, visual, auditory hallucinations and polysubstance abuse. Physical exam benign. Symptoms likely secondary to polysubstance abuse or or depression. Unlikely metabolic disturbances. Plan at this time medical clearance evaluation by the behavioral health team Differential Diagnosis Differential Diagnoses: The differential diagnosis associated with the presentation includes Symptoms likely secondary to polysubstance abuse or or depression. Unlikely metabolic disturbances. Admission/Observation Consideration of admission/observation: Escalation of care including admission/observation considered [facility] psych admit Consult Healthcare Provider Management of the patient was discussed with: Behavioral Health Provider Lab Data [facility] Lab Attestation statement: I reviewed the patient's lab results. 06/08/22 20:59 06/08/22 20:59 Labs: Lab Results 06/08/22 06/08/22 06/08/22 Range/Units 20:11 20:11 20:22 WBC (4.8-10.8) X10*3/uL RBC (4.60-5.80) X10*6/uL Hgb (14.0-18.0) g/dl Hct (42.0-52.0) % MCV (80.0-98.0) fL MCH (27.0-33.0) pg MCHC (31.0-36.0) g/dl RDW (11.0-16.0) % Plt Count (160-400) X10*3/uL MPV (9.4-12.4) fL Immature Gran % (Auto) (0.0-0.4) % Neut % (Auto) (45-73) % Lymph % (Auto) (20-40) % [place] % (Auto) (2-11) % Eos % (Auto) (0-4) % Baso % (Auto) (0-2) % Lymph # (Auto) (1.2-4.9) X10*3/uL [place] # (Auto) (0.1-1.2) X10*3/uL Eos # (Auto) (0.0-0.4) X10*3/uL Baso # (Auto) (0.0-0.2) X10*3/uL Abs Immat Gran (auto) (0.00-0.03) X10*3/uL Absolute Neuts (auto) (2.0-8.3) x10*3/uL Absolute Nucleated RBC (0.0-0.012) X10*3/uL Nucleated RBC % (auto) (0.0-0.2) /100WBC Urine Color Yellow Urine Appearance Clear Urine pH 7.0 (5.0-9.0) Ur Specific [place] 1.020 (1.005-1.025) Urine Protein Negative (Neg-Trace) mg/dL Urine Glucose (UA) Negative (Negative) mg/dL Urine Ketones Negative (Negative) mg/dL Urine Blood Negative (Negative) Urine Nitrite Negative (Negative) Ur Leukocyte Esterase Negative (Negative) Urine Opiates Screen POSITIVE H (Not Detect) Urine Fentanyl Screen POSITIVE H (Not Detect) Ur Barbiturates Screen Not Detected (Not Detect) Ur Phencyclidine Scrn Not Detected (Not Detect) Ur Amphetamines Screen Not Detected (Not Detect) U Benzodiazepines Scrn Not Detected (Not Detect) Urine Cocaine Screen POSITIVE H (Not Detect) U Marijuana (THC) Screen POSITIVE H (Not Detect) COVID-19 (RAE) Negative (Negative) COVID-19 Clin Com See Note 06/08/22 Range/Units 20:59 WBC 8.5 (4.8-10.8) X10*3/uL RBC 3.88 L (4.60-5.80) X10*6/uL Hgb 11.4 L (14.0-18.0) g/dl Hct 33.6 L (42.0-52.0) % MCV 86.6 (80.0-98.0) fL MCH 29.4 (27.0-33.0) pg MCHC 33.9 (31.0-36.0) g/dl RDW 13.1 (11.0-16.0) % Plt Count 267 (160-400) X10*3/uL MPV 8.9 L (9.4-12.4) fL Immature Gran % (Auto) 0.2 (0.0-0.4) % Neut % (Auto) 69.5 (45-73) % Lymph % (Auto) 23.6 (20-40) % [place] % (Auto) 6.0 (2-11) % Eos % (Auto) 0.2 (0-4) % Baso % (Auto) 0.5 (0-2) % Lymph # (Auto) 2.0 (1.2-4.9) X10*3/uL [place] # (Auto) 0.5 (0.1-1.2) X10*3/uL Eos # (Auto) 0.0 (0.0-0.4) X10*3/uL Baso # (Auto) 0.0 (0.0-0.2) X10*3/uL Abs Immat Gran (auto) 0.02 (0.00-0.03) X10*3/uL Absolute Neuts (auto) 5.9 (2.0-8.3) x10*3/uL Absolute Nucleated RBC 0.000 (0.0-0.012) X10*3/uL Nucleated RBC % (auto) 0.0 (0.0-0.2) /100WBC Urine Color Urine Appearance Urine pH (5.0-9.0) Ur Specific [place] (1.005-1.025) Urine Protein (Neg-Trace) mg/dL Urine Glucose (UA) (Negative) mg/dL Urine Ketones (Negative) mg/dL Urine Blood (Negative) Urine Nitrite (Negative) Ur Leukocyte Esterase (Negative) Urine Opiates Screen (Not Detect) Urine Fentanyl Screen (Not Detect) Ur Barbiturates Screen (Not Detect) Ur Phencyclidine Scrn (Not Detect) Ur Amphetamines Screen (Not Detect) U Benzodiazepines Scrn (Not Detect) Urine Cocaine Screen (Not Detect) U Marijuana (THC) Screen (Not Detect) COVID-19 (RAE) (Negative) COVID-19 Clin Com Core Measures AMI core measures followed: Yes Measure exclusions: not indicated Critical Care Time Critical Care Time Critical Care Time: No Discharge Plan Discharge Clinical Impression: Suicidal ideation, Homicidal ideation, Polysubstance abuse Patient Disposition: Still a Patient Prescriptions: No Action No Known Home Meds Interventions: [place]-Suicide Risk Severity Scale Last Done: 06/08/22 19:26
[2022-06-08 20:41] LABS: Appearance Urine Clear; Color Urine Yellow; Glucose Urine UA Negative (Negative); Leukocyte Esterase Urine Negative (Negative); Nitrite Urine Negative (Negative); Urine Blood Negative (Negative); Urine Ketones Negative (Negative); Urine Protein Negative (Neg-Trace)
[2022-06-08 20:50] LABS: Amphetamine Screen Urine Not Detected (Not Detect); Barbiturates, Urine Not Detected (Not Detect); Benzodiazepines Screen Urine Not Detected (Not Detect); Cannabinoid Screen Urine POSITIVE (Not Detect); Cocaine Screen Urine POSITIVE (Not Detect); Fentanyl, urine POSITIVE (Not Detect); Opiate Screen Urine POSITIVE (Not Detect); Phencyclidine Screen Urine Not Detected (Not Detect)
[2022-06-08 21:06] LABS: COVID-19 Test Negative (Negative); IDNOW Serial# 6674DD1D
[2022-06-08 21:18] LABS: MANUAL DIFF FLAG NO
[2022-06-08 21:19] LABS: Basophils Percent Auto 0.5 % (0-2); Eosinophils Percent Auto 0.2 % (0-4); Hematocrit 33.6 % (42.0-52.0); Hemoglobin 11.4 g/dl (14.0-18.0); Imm Gran Abs Auto 0.02 X10*3/uL (0.00-0.03); Imm Gran Pct Auto 0.2 % (0.0-0.4); Lymphocytes Percent Auto 23.6 % (20-40); Mean Corpuscular HGB Conc 33.9 g/dl (31.0-36.0); Mean Corpuscular Hemoglobin 29.4 pg (27.0-33.0); Mean Corpuscular Volume 86.6 fL (80.0-98.0); Mean Platelet Volume 8.9 fL (9.4-12.4); Monocytes Absolute Auto 0.5 X10*3/uL (0.1-1.2); Neutrophils Absolute Auto 5.9 x10*3/uL (2.0-8.3); Neutrophils Percent Auto 69.5 % (45-73); Platelet Count 267 X10*3/uL (160-400); Red Blood Count 3.88 X10*6/uL (4.60-5.80); Red Cell Distribution Width 13.1 % (11.0-16.0); White Blood Count 8.5 X10*3/uL (4.8-10.8)
[2022-06-08 21:36] LABS: Ethanol < 10 mg/dL
[2022-06-08 21:43] LABS: Acetaminophen LAB < 17 mcg/mL (<30); Alanine Aminotransferase 47 U/L (0-40); Albumin Level 3.4 g/dL (3.5-5.0); Alkaline Phosphatase 78 U/L (39-117); Anion Gap 12 (12-20); Aspartate Amino Transferase 41 U/L (5-37); Bilirubin Total 0.4 mg/dL (0.0-1.0); Blood Urea Nitrogen 15 mg/dL (9-16); Calcium 8.7 mg/dL (8.4-10.2); Carbon Dioxide 25 mmol/L (22-29); Chloride 103 mmol/L (96-108); Creatinine Clr Calc Pharmacy 99.2; Estimated Glomerular Filt Rate > 60; Glucose Random 132 mg/dL (60-115); Potassium 3.7 mmol/L (3.3-5.1); Salicylate < 5.0 mg/dL (15-30); Sodium 136 mmol/L (135-145); Total Protein 6.8 g/dL (6.5-8.0)
[2022-06-09 00:32] VITALS: BP 139/91; PULSE 60; RESP 16; TEMP 36.7; O2SAT 97
[2022-06-09 08:43] VITALS: BP 169/90; PULSE 67; RESP 16; TEMP 36.6; O2SAT 97
[2022-06-09] MEDS: Acetaminophen 325 MG TABLET 650 MG PO (11:01)
--- NOTE | 2022-06-09 11:48 | PC.NURSE ---
Care team met with pt. Awaiting dispo.
--- NOTE | 2022-06-09 13:55 | MHC.RECOVRN ---
This automotive service writer reviewed recovery resources at the bedside, provided list of detox facilities, reviewed which facilities have open beds and provide transportation; reviewed [facility] services, reviewed Medications for Addiction treatment. Resouces provided left at bedside after review. Patient verbalized understanding.
== END 2022-06-09 14:05 | disposition home or self-care (01) ==
PROVIDERS: Physician Assistant; Emergency Provider Internal Medicine
DX: R45.851 Suicidal ideations (principal); R45.850 Homicidal ideations; F19.20 Other psychoactive substance dependence, uncomplicated; R44.0 Auditory hallucinations; R44.1 Visual hallucinations; R44.2 Other hallucinations; Z20.822 Contact with and (suspected) exposure to COVID-19; F41.9 Anxiety disorder, unspecified; F32.A Depression, unspecified; F17.210 Nicotine dependence, cigarettes, uncomplicated; F10.10 Alcohol abuse, uncomplicated; Y90.0 Blood alcohol level of less than 20 mg/100 ml; I10 Essential (primary) hypertension; Z59.01 Sheltered homelessness
CPT/HCPCS: 36415; 80053; 80143; 80179; 80307; 81003; 82077; 85025; 87635; 99284; 99285; S9485

== ENCOUNTER 2024-12-01 15:45 | Inpatient (IN) | payer MEDICAID, SELFPAY ==
[2024-12-01 16:01] VITALS: BP 140/88; BP 142/97; PULSE 88; RESP 16; TEMP 36.7; O2SAT 98; O2SAT 99; BMI 28.5
[2024-12-01 16:47] LABS: Hemoglobin 14.4 g/dl (14.0-18.0); Imm Gran Abs Auto 0.04 X10*3/uL (0.00-0.03); Imm Gran Pct Auto 0.3 % (0.0-0.4); MANUAL DIFF FLAG SCAN; Mean Corpuscular Hemoglobin 29.0 pg (27.0-33.0); NRBC Abs Auto 0.000 X10*3/uL (0.0-0.012); NRBC Pct Auto 0.0 /100WBC (0.0-0.2); PLT CLUMP 1; Red Blood Count 4.96 X10*6/uL (4.60-5.80); SCAN SMEAR FLAG 1
[2024-12-01 16:48] LABS: Hematocrit 39.9 % (42.0-52.0); Lymphocytes Absolute Auto 1.7 X10*3/uL (1.2-4.9); Mean Corpuscular HGB Conc 36.1 g/dl (31.0-36.0); Mean Corpuscular Volume 80.4 fL (80.0-98.0)
--- OUTSIDE RECORDS SUMMARY | 2024-12-01 16:54 | XMS_ITS | Encounter Summary ---
Author Organization [employer] Address [address] [place] [address] [address] [place] [address] Care Team Providers Care Adjusto Writer Operator Name Role Phone Unavailable Primary Care Provider Unavailabl e Encounter Details Date Type Department Care Team (Late st Contact Info) Description 11/09/[address] [facility] MEDICINE [address] [place] [address] Philip Gorman MD [address] [place] [address] Social History Tobacco Use Types Packs/Day Years Used Date Smoking Tobacco: Never Assessed Sex and Gender Information Value Date Recorded Sex Assigned at Male 02/15/2022 10:17 AM EDT Legal Sex Male 10:17 AM EDT Gender Identity Male 11/28/2024 2:16 PM EDT Sexual Orientation Straight 02/15/2022 10 :17 AM EDT documented as of this encounter Miscellaneous Notes * Telephone Encounter - Maldonado Molina - 11/09/2024 2:04 PM EDT Patient added to [facility] New Patient wait list as 11-09-2024 documented in this encounter Plan of Treatment Not on file documented as of this encounter Visit Diagnoses Not on filedocumented in this encounter
[2024-12-01 17:07] LABS: Alanine Aminotransferase 30 U/L (0-40); Albumin Level 5.0 g/dL (3.5-5.0); Alkaline Phosphatase 76 U/L (39-117); Anion Gap 21 (12-20); Aspartate Amino Transferase 117 U/L (5-37); Blood Urea Nitrogen 47 mg/dL (9-16); Calcium 9.9 mg/dL (8.4-10.2); Carbon Dioxide 21 mmol/L (22-29); Chloride 99 mmol/L (96-108); Creatinine Clr Calc Pharmacy 36.4; Estimated Glomerular Filt Rate 28; Magnesium 2.3 mg/dL (1.6-2.6); Potassium 3.6 mmol/L (3.3-5.1); Sodium 137 mmol/L (135-145); Total Protein 9.0 g/dL (6.5-8.0)
--- NOTE | 2024-12-01 17:24 | ED_ITS ---
HPI - Weakness General Chief complaint: Weakness Stated complaint: feeling dehydrated, used narcotics @ noon Time Seen by Provider: 12/01/24 15:49 Source: patient and EMS Mode of arrival: EMS Limitations: other ( poor historian) History of Present Illness ED Provider: MELVIN Johnston HPI Narrative: This is a 59-year-old male presenting with fatigue, malaise, muscle aches and pains overall feeling unwell. He reports he has not been eating or drinking much however he has continued to use street drugs. He uses IV heroin last used at noon. He denies chest pain, shortness of breath, nausea, vomiting, abdominal pain, headache, vision changes, dizziness, weakness. Patient very poor historian and dosing in and out during my exam. No reported falls or trauma Related Data Home Medications ?Medication ?Instructions ?Recorded ?Confirmed No Known Home Meds 06/08/22 06/08/22 Allergies Allergy/AdvReac Type Severity Reaction Status Date / Time No Known Drug Allergies Allergy Unknown UNKNOWN Verified 12/01/24 16:04 Review of Systems 2 Review of Systems: Yes all other systems are reviewed and are negative [facility] Past Medical History Attestation statement: The following information was validated with the patient. Source: old records reviewed and nursing notes reviewed Medical History Opioid use disorder Alcohol abuse Surgical History No pertinent past surgical history Family History Family History Other No family history of coronary artery disease Social History Social History Household Members: None Housing: Homeless Do you presently have visiting nurse or other home services: No Alcohol intake: unknown Patient Tobacco Use Status: Current everyday Tobacco user Tobacco use type: Cigarette Cigarettes Per Day: 15 Substance Use Type: Heroin Advance Directives: No Advance Directives Information Provided: No service: No Current occupational status: unemployed and disabled Physical Exam 2 Exam: Exam: Appearance: Alert.? Oriented X3.? + dozing in and out of my exam Head: Normocephalic, atraumatic, no step-offs or deformities Eyes: Pupils equal, round and reactive to light.? ENT: Pharynx normal.? Neck: Normal inspection.? Neck supple.? CVS: Normal heart rate and rhythm.? Pulses normal.? Respiratory: No respiratory distress.? Breath sounds normal.? Abdomen: Soft and nontender.? Skin: Skin warm and dry.? Normal skin color.? Normal skin turgor.? Extremities: No lower extremity edema.? No calf ttp. Global wekaness. Back: No midline tenderness, no C-spine tenderness, full range of motion, no CVA tenderness bilaterally Neuro: Oriented X 3.? No motor deficit.? No sensory deficit. CN 2-12 intact Vital Signs: Vital Signs: Last Vital Signs Temp 98.1 F 12/01/24 16:01 Pulse 88 12/01/24 16:01 Resp 16 12/01/24 16:01 BP 140/88 H 12/01/24 16:01 Pulse Ox 98 12/01/24 16:01 O2 Del Method Room Air 12/01/24 16:01 BMI result Body Mass Index 28.5 vital signs stable Course Reevaluation(s) Reevaluation #1: Patient's CBC pending. chemistry with significantly elevated in BUN and creatinine as well as significantly elevated CPK consistent with rhabdomyolysis. Elevated bilirubin 1.2 over no abdominal tenderness on exam. Will give patient IV fluids for hydration patient will likely require admission for rhabdo. Time: 17:31 Reevaluation #2: Patient has leukocytosis this is likely reactive / inflammatory I do not suspect infection. He is not febrile no tachycardia or hypotension. Time: 17:42 Reevaluation #3: plan is hospital admission Medical Decision Making Medical Decision Making [facility] Narrative: 1635 59-year-old male presents feeling overall unwell decreased p.o. intake. Has been walking a lot lately physical exam patient nodding off during my exam however hemodynamically stable. History and physical exam concerning for rhabdomyolysis and electrolyte abnormalities. Will rule out kidney injury. Will also rule out viral illness. No signs of trauma to head, neck, chest, abdomen or pelvis Patient not suicidal or homicidal. Will also do a urine toxicology to see what substances patient is using. Does not appear to be under the influence of alcohol however will rule out. Plan labs, urine. Differential Diagnosis Differential Diagnoses: The differential diagnosis associated with the presentation includes (History and physical exam concerning for rhabdomyolysis and electrolyte abnormalities. Will rule out kidney injury. Will also rule out viral illness. No signs of trauma to head, neck, chest, abdomen or pelvis Patient not suicidal or homicidal. Will also do a urine toxicology to see what substan) Admission/Observation Consideration of admission/observation: Escalation of care including admission/observation considered Lab Data MDM Lab Attestation statement: I reviewed the patient's lab results. 12/01/24 16:42 12/01/24 16:42 Labs: Lab Results 12/01/24 Range/Units 16:42 WBC 11.4 H (4.8-10.8) X10*3/uL RBC 4.96 D (4.60-5.80) X10*6/uL Hgb 14.4 D (14.0-18.0) g/dl Hct 39.9 L (42.0-52.0) % MCV 80.4 (80.0-98.0) fL MCH 29.0 (27.0-33.0) pg MCHC 36.1 H (31.0-36.0) g/dl RDW 12.6 (11.0-16.0) % Plt Count 210 (160-400) X10*3/uL MPV 10.2 (9.4-12.4) fL Immature Gran % (Auto) 0.3 (0.0-0.4) % Neut % (Auto) 78.5 H (45-73) % Lymph % (Auto) 14.6 L (20-40) % [place] % (Auto) 6.4 (2-11) % Eos % (Auto) 0.0 (0-4) % Baso % (Auto) 0.2 (0-2) % Lymph # (Auto) 1.7 (1.2-4.9) X10*3/uL [place] # (Auto) 0.7 (0.1-1.2) X10*3/uL Eos # (Auto) 0.0 (0.0-0.4) X10*3/uL Baso # (Auto) 0.0 (0.0-0.2) X10*3/uL Abs Immat Gran (auto) 0.04 H (0.00-0.03) X10*3/uL Absolute Neuts (auto) 9.0 H (2.0-8.3) x10*3/uL Absolute Nucleated RBC 0.000 (0.0-0.012) X10*3/uL Nucleated RBC % (auto) 0.0 (0.0-0.2) /100WBC Smear Tech's Comments VERIFIED Sodium 137 (135-145) mmol/L Potassium 3.6 (3.3-5.1) mmol/L Chloride 99 (96-108) mmol/L Carbon Dioxide 21 L (22-29) mmol/L Anion Gap 21 H (12-20) BUN 47 H (9-16) mg/dL Creatinine 2.37 H (0.5-1.4) mg/dL Estim Creat Clear Calc 36.4 Estimated GFR 28 Random Glucose 160 H (60-115) mg/dL Calcium 9.9 D (8.4-10.2) mg/dL Magnesium 2.3 (1.6-2.6) mg/dL Total Bilirubin 1.2 H (0.0-1.0) mg/dL AST 117 H (5-37) U/L ALT 30 (0-40) U/L Alkaline Phosphatase 76 (39-117) U/L Total Creatine Kinase 4697 H (38-174) U/L Total Protein 9.0 H (6.5-8.0) g/dL Albumin 5.0 (3.5-5.0) g/dL Ethyl Alcohol < 10 mg/dL Radiology Impression Discussion of test interpretation with radiology: I have reviewed the radiologist's reading. Independent Historian Clinical information obtained from an independent historian. History obtained from or confirmed by: EMS Critical Care Time Critical Care Time Critical Care Time: Yes Total Critical Care Time: 45 Attestation: I attest to this time spent taking care of the patient, obtaining history, physical, reviewing labs, imaging, treatment of patients condition +/- specialist/hospitalist consult +/- procedure Discharge Plan Discharge Clinical Impression: IVDU (intravenous drug user), Rhabdomyolysis, Dehydration, MICHELL (acute kidney injury) Prescriptions: No Action No Known Home Meds Print Language: Slovak
[2024-12-01 17:37] LABS: Platelet Count 210 X10*3/uL (160-400); White Blood Count 11.4 X10*3/uL (4.8-10.8)
--- NOTE | 2024-12-01 18:08 | PHA.MEDREC ---
Pharmacy Consult ? Medication Reconciliation Pharmacy has completed the medication reconciliation.Patient was not a good historian. He did say he is on something at home but could not provide any information, also unable to say what pharmacy he fills it at. There are no pharmacy claims for him in the past year.
--- NOTE | 2024-12-01 18:10 | P.HPHOSP_ITS ---
History of Present Illness Date of Service: 12/01/24 Chief Complaint: weakness 59M PMH IVDA, mood disorder, alcohol dependence, homelessness presented with vague complaints of feeling unwell. Patient is a poor historian. He reports 2- 3 days of feeling weak, tired, crampy. Reports lying down outside for long periods of time. Minimal p.o. intake. So he came to ED. In ED noted to have acute kidney injury with creatinine of 2.37, CPK of 4697. Denies fever, chills, nausea vomiting, diarrhea. Review of Systems 2 Review of Systems: Yes all other systems are reviewed and are negative [facility] Medical History Opioid use disorder Alcohol abuse Family History Other No family history of coronary artery disease Surgical History No pertinent past surgical history Social History Household Members: None Housing: Homeless Do you presently have visiting nurse or other home services: No Alcohol intake: unknown Patient Tobacco Use Status: Current everyday Tobacco user Tobacco use type: Cigarette Cigarettes Per Day: 15 Substance Use Type: Heroin Advance Directives: No Advance Directives Information Provided: No service: No Current occupational status: unemployed and disabled Meds Allergies Allergy/AdvReac Type Severity Reaction Status Date / Time No Known Drug Allergies Allergy Unknown UNKNOWN Verified 12/01/24 16:04 Active Medications: Current Medications Acetaminophen (Acetaminophen 325 Mg Tablet) 650 mg PO Q6H PRN PRN Reason: Pain, Mild 1-3,fever,headache Calcium Carbonate (Calcium Carbonate 750 Mg Tab.Chew) 750 mg PO Q4H PRN PRN Reason: Heartburn Heparin Sodium (Porcine) (Heparin Sodium,Porcine 5,000 Unit/Ml Vial) 5,000 unit SUBCUT Q8H RAUL Sodium Chloride (Ns) 1,000 mls @ 999 mls/hr IV .Q1H1M RAUL Stop: 12/01/24 18:45 Sodium Chloride (Ns) 1,000 mls @ 999 mls/hr IV .Q1H1M RAUL Stop: 12/01/24 18:45 Sodium Chloride (Ns) 1,000 mls @ 999 mls/hr IV .Q1H1M RAUL Stop: 12/01/24 18:45 Lactated Ringer's (Lr) 1,000 mls @ 125 mls/hr IVCONT .Q8H RAUL Magnesium Hydroxide (Milk Of Magnesia 30 Ml Oral.Susp) 30 ml PO DAILY PRN PRN Reason: Constipation Melatonin (Melatonin 3 Mg Tablet) 6 mg PO BEDTIME PRN PRN Reason: Insomnia Sodium Chloride (0.9 % Sodium Chloride Flush 3 Ml Syringe) 3 ml IVFLUSH QSHIFT RAUL Home Medications ?Medication ?Instructions ?Recorded ?Confirmed ?Last Taken ?Type No Known Home Meds 06/08/22 12/01/24 Un known History Physical Exam 2 Vital Signs and Narrative: Vital Signs: Last Vital Signs Temp 98.1 F 12/01/24 16:01 Pulse 88 12/01/24 16:01 Resp 16 12/01/24 16:01 BP 140/88 H 12/01/24 16:01 Pulse Ox 98 12/01/24 16:01 O2 Del Method Room Air 12/01/24 16:01 BMI result Body Mass Index 28.5 General: AO X 3, no acute distress Resp: CTA bilateral, no accessory muscles used CVS: S1,S2,RRR GI: soft, non tender, non distended Neuro: motor grossly intact, alert Psych: appropriate affect, appropriate insight Results Labs 12/01/24 16:42 12/01/24 16:42 Labs: Laboratory Results - last 24 hr 12/01/24 16:42 MCV 80.4 MCH 29.0 MCHC 36.1 H RDW 12.6 Plt Count 210 MPV 10.2 Immature Gran % (Auto) 0.3 Neut % (Auto) 78.5 H Lymph % (Auto) 14.6 L [place] % (Auto) 6.4 Eos % (Auto) 0.0 Baso % (Auto) 0.2 Lymph # (Auto) 1.7 [place] # (Auto) 0.7 Eos # (Auto) 0.0 Baso # (Auto) 0.0 Abs Immat Gran (auto) 0.04 H Absolute Neuts (auto) 9.0 H Absolute Nucleated RBC 0.000 Nucleated RBC % (auto) 0.0 Smear Tech's Comments VERIFIED Anion Gap 21 H Estim Creat Clear Calc 36.4 Estimated GFR 28 Random Glucose 160 H Calcium 9.9 D Magnesium 2.3 Total Bilirubin 1.2 H AST 117 H ALT 30 Alkaline Phosphatase 76 Total Creatine Kinase 4697 H Total Protein 9.0 H Albumin 5.0 Ethyl Alcohol < 10 Assessment and Plan (1) IVDU (intravenous drug user): Status: Acute Plan 59M PMH IVDA, mood disorder, alcohol dependence, homelessness presented with vague complaints of feeling unwell found to have rhabdo with ksenia Acute kidney injury due to rhabdomyolysis IV fluids, monitor BNP and CPK IVDA and opiate dependence Addiction eval Alcohol dependence Monitor CIWA DVT prophylaxis with heparin subQ Full code Quality Stroke Does the patient have a stroke diagnosis?: No VTE Prior VTE?: No VTE Risk Level:: Medical - moderate - high VTE Device Contraindication: Treatment Not Indicated VTE Drug Contraindication: N/A - Med Ordered
[2024-12-01 18:25] VITALS: BP 121/82; PULSE 75; RESP 18; TEMP 36.3; O2SAT 96
--- NOTE | 2024-12-01 19:21 | PC.NURSE ---
assumed care of this Pt at 1900. Pt appears to be sleeping, equal, non labored respirations, awakens with tactile stimuli, A&Ox2 (name and place).
[2024-12-01] MEDS: Lactated Ringers 1,000 ML 125 ML IVCONT (20:23)
--- NOTE | 2024-12-01 20:29 | PC.NURSE ---
Provider Pedro Crain at bedside placing IV ultrasound.
--- NOTE | 2024-12-01 20:41 | PC.NURSE ---
Verbal report given to overflow RN. Pt will be transported to bed 2 by transporter.
[2024-12-01 21:28] VITALS: BP 155/95; PULSE 76; RESP 18; TEMP 36.9; O2SAT 97
[2024-12-01 21:54] LABS: Appearance Urine Cloudy; Glucose Urine UA Negative (Negative); PH 5.5 (5.0-9.0); Specific Gravity - Urine 1.020 (1.005-1.025); UMIC TRIGGER UACC YES
[2024-12-01 22:00] VITALS: BP 136/76; PULSE 69; RESP 16; TEMP 36.5; O2SAT 93
[2024-12-01 22:02] LABS: Cannabinoid Screen Urine POSITIVE (Not Detect)
[2024-12-01 22:06] LABS: UACC Culture Trigger YES
[2024-12-02] VITALS (11 sets, daily range): BP systolic 104–150; BP diastolic 61–88; PULSE 60–68; RESP 14–18; TEMP 36.6–37.1; O2SAT 92–100
[2024-12-02] MEDS: Lactated Ringers 1,000 ML 125 ML IVCONT ×3 (04:52→20:22)
[2024-12-02 10:21] LABS: Hematocrit 37.1 % (42.0-52.0); Hemoglobin 13.2 g/dl (14.0-18.0); Mean Corpuscular HGB Conc 35.6 g/dl (31.0-36.0); Mean Corpuscular Hemoglobin 28.9 pg (27.0-33.0); Mean Corpuscular Volume 81.4 fL (80.0-98.0); NRBC Abs Auto 0.000 X10*3/uL (0.0-0.012); NRBC Pct Auto 0.0 /100WBC (0.0-0.2); Platelet Count 194 X10*3/uL (160-400); Red Blood Count 4.56 X10*6/uL (4.60-5.80); White Blood Count 7.1 X10*3/uL (4.8-10.8)
--- NOTE | 2024-12-02 10:34 | PC.NURSE ---
Pt resting quietly in room; CIWA score below 5 at this time; pt denies pain; c/o feeling weak; bed alarm on for safety as pt's balance is unsteady when using urinal; 1 assist for safety; A+Ox2, unsure of day/date; cooperative; awaiting bed for admission
[2024-12-02 10:42] LABS: Alanine Aminotransferase 28 U/L (0-40); Albumin Level 4.1 g/dL (3.5-5.0); Alkaline Phosphatase 67 U/L (39-117); Anion Gap 16 (12-20); Aspartate Amino Transferase 111 U/L (5-37); Blood Urea Nitrogen 26 mg/dL (9-16); Calcium 9.0 mg/dL (8.4-10.2); Carbon Dioxide 20 mmol/L (22-29); Chloride 108 mmol/L (96-108); Creatinine Clr Calc Pharmacy 109.4; Estimated Glomerular Filt Rate > 60; Magnesium 2.4 mg/dL (1.6-2.6); Potassium 3.6 mmol/L (3.3-5.1); Sodium 140 mmol/L (135-145); Total Protein 7.6 g/dL (6.5-8.0)
--- NOTE | 2024-12-02 12:01 | MHC.CM.PN ---
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
--- NOTE | 2024-12-02 12:24 | HO.PM.IMPN ---
Subjective Subjective Date of Service: 12/02/24 Interval History: Feeling a bit better Physical Exam Exam: Exam: General: AO X 3, no acute distress Resp: CTA bilateral, no accessory muscles used CVS: S1,S2,RRR GI: soft, non tender, non distended Neuro: motor grossly intact, alert Psych: appropriate affect, appropriate insight Vital Signs: Vital Signs: Last Vital Signs Temp 98.0 F 12/02/24 10:00 Pulse 66 12/02/24 10:00 Resp 15 12/02/24 10:00 BP 120/81 12/02/24 10:00 Pulse Ox 99 12/02/24 10:00 O2 Del Method Room Air 12/02/24 10:00 BMI result Body Mass Index 28.5 Objective Data Active Medications Acetaminophen (Acetaminophen 325 Mg Tablet) 650 mg PO Q6H PRN PRN Reason: Pain, Mild 1-3,fever,headache Calcium Carbonate (Calcium Carbonate 750 Mg Tab.Chew) 750 mg PO Q4H PRN PRN Reason: Heartburn Heparin Sodium (Porcine) (Heparin Sodium,Porcine 5,000 Unit/Ml Vial) 5,000 unit SUBCUT Q8H [facility] Last Admin: 12/02/24 10:19 Dose: 5,000 unit Documented By: KEKE Lactated Ringer's (Lr) 1,000 mls @ 125 mls/hr IVCONT .Q8H [facility] Last Admin: 12/02/24 12:08 Dose: 125 mls/hr Documented By: KEKE Magnesium Hydroxide (Milk Of Magnesia 30 Ml Oral.Susp) 30 ml PO DAILY PRN PRN Reason: Constipation Melatonin (Melatonin 3 Mg Tablet) 6 mg PO BEDTIME PRN PRN Reason: Insomnia Sodium Chloride (0.9 % Sodium Chloride Flush 3 Ml Syringe) 3 ml IVFLUSH QSHIFT [facility] Last Admin: 12/02/24 07:49 Dose: Not Given Documented By: KEKE Non-Admin Reason: IV Running Labs 12/02/24 10:13 12/02/24 10:13 Labs: Laboratory Results - last 24 hr 12/01/24 12/01/24 12/02/24 16:42 21:40 10:13 MCV 80.4 81.4 MCH 29.0 28.9 MCHC 36.1 H 35.6 RDW 12.6 12.9 Plt Count 210 194 MPV 10.2 9.9 Immature Gran % (Auto) 0.3 Neut % (Auto) 78.5 H Lymph % (Auto) 14.6 L [place] % (Auto) 6.4 Eos % (Auto) 0.0 Baso % (Auto) 0.2 Lymph # (Auto) 1.7 [place] # (Auto) 0.7 Eos # (Auto) 0.0 Baso # (Auto) 0.0 Abs Immat Gran (auto) 0.04 H Absolute Neuts (auto) 9.0 H Absolute Nucleated RBC 0.000 0.000 Nucleated RBC % (auto) 0.0 0.0 Smear Tech's Comments VERIFIED Anion Gap 21 H 16 Estim Creat Clear Calc 36.4 109.4 Estimated GFR 28 > 60 Random Glucose 160 H 118 H Calcium 9.9 D 9.0 D Magnesium 2.3 2.4 Total Bilirubin 1.2 H 0.9 Direct Bilirubin 0.3 AST 117 H 111 H ALT 30 28 Alkaline Phosphatase 76 67 Total Creatine Kinase 4697 H 3792 H Total Protein 9.0 H 7.6 Albumin 5.0 4.1 Urine Color Yellow Urine Appearance Cloudy Urine pH 5.5 Ur Specific [place] 1.020 Urine Protein 30 (1+) H Urine Glucose (UA) Negative Urine Ketones 15 Urine Blood Moderate (2+) H Urine Nitrite Negative Ur Leukocyte Esterase Negative Urine RBC 0-2 Urine WBC 6-10 Ur Squamous Epith Cells 3-5 Urine Bacteria None Seen Hyaline Casts >20 Granular Casts Present Urine Opiates Screen POSITIVE H Ur Buprenorphine Scrn Positive H Ur Oxycodone Screen Not Detected Urine Methadone Screen Not Detected Urine Fentanyl Screen POSITIVE H Ur Barbiturates Screen Not Detected Ur Phencyclidine Scrn Not Detected Ur Amphetamines Screen Not Detected U Benzodiazepines Scrn Not Detected Urine Cocaine Screen POSITIVE H U Marijuana (THC) Screen POSITIVE H Ethyl Alcohol < 10 Microbiology Microbiology Results: Microbiology 12/01/24 Unknown Urine Culture - Preliminary Urine clean catch - Clean Catch Midstream No growth to date. Assessment and Plan (1) MICHELL (acute kidney injury): Status: Acute Plan 59M PMH IVDA, mood disorder, alcohol dependence, homelessness presented with vague complaints of feeling unwell found to have rhabdo with michell Acute kidney injury due to rhabdomyolysis IV fluids, creatinine improved, CPK decreasing, continue to monitor BMP and CPK IVDA and opiate dependence Addiction eval Alcohol dependence Monitor CIWA DVT prophylaxis with heparin subQ Full code reason for continued hospitalization: Aggressive hydration for rhabdo Quality Stroke Does the patient have a stroke diagnosis?: No VTE Prior VTE?: No VTE Risk Level:: Medical - moderate - high VTE Device Contraindication: Treatment Not Indicated VTE Drug Contraindication: N/A - Med Ordered
--- NOTE | 2024-12-02 15:09 | HO.ADDICTCON ---
History of Present Illness Date of Service: 12/02/2024 Chief Complaint: MICHELL Reason for Consult: OUD Sources of Information: patient interviewed and chart reviewed HPI Narrative: Patient is a 59 year old male who presented to ED with weakness, muscle aches. Admitted with rhabdo and MICHELL. Consult requested due to reported substance use Patient seen in overflow bed He is sleeping upon approach, but wakes easily to voice. Somewhat guarded during interview and vague with responses. Reports he was recently released from incarceration, but does not recall when. States he was started on buprenorphine while in correction, but does not remember what MOUD provider or program he was referred afterwards. He states last use of opiates was prior to coming to ED, and last suboxone dose was btwn 1-2 weeks ago UDS +fent, bup, and cocaine. He denies any withdrawal sx. Reports he was using very little Would like to restart suboxone Labs reviewed--BUN, Cr, and CPK improved Review of Systems Constitutional: Reports as per HPI and Reports no additional constitutional complaints Diagnostics Vital Signs (24Hr): Vital Signs - 24 hr 12/01/24 16:01 12/01/24 18:25 12/01/24 21:28 Temperature 98.1 F 97.3 F 98.4 F Pulse Rate 88 75 76 Respiratory Rate 16 18 18 Blood Pressure 140/88 H 121/82 155/95 H Pulse Oximetry 98 96 97 Oxygen Delivery Method Room Air Room Air Room Air 12/01/24 22:00 12/02/24 00:00 12/02/24 02:00 Temperature 97.7 F 98.3 F 98.3 F Pulse Rate 69 60 66 Respiratory Rate 16 16 16 Blood Pressure 136/76 150/88 H 107/61 Pulse Oximetry 93 96 94 Oxygen Delivery Method Room Air Room Air Room Air 12/02/24 04:00 12/02/24 05:59 12/02/24 08:00 Temperature 98.3 F 97.9 F 98.0 F Pulse Rate 66 65 68 Respiratory Rate 16 18 16 Blood Pressure 104/64 117/77 118/80 Pulse Oximetry 92 97 99 Oxygen Delivery Method Room Air Room Air Room Air 12/02/24 10:00 12/02/24 12:00 12/02/24 13:42 Temperature 98.0 F 98 F 97.8 F Pulse Rate 66 67 61 Respiratory Rate 15 16 14 Blood Pressure 120/81 122/78 141/78 H Pulse Oximetry 99 100 97 Oxygen Delivery Method Room Air Room Air Room Air BMI result Body Mass Index 28.5 Labs 12/02/24 10:13 12/02/24 10:13 Labs: Laboratory Results - last 48 hr 12/01/24 12/01/24 12/02/24 16:42 21:40 10:13 WBC 11.4 H 7.1 RBC 4.96 D 4.56 L Hgb 14.4 D 13.2 L Hct 39.9 L 37.1 L MCV 80.4 81.4 MCH 29.0 28.9 MCHC 36.1 H 35.6 RDW 12.6 12.9 Plt Count 210 194 MPV 10.2 9.9 Immature Gran % (Auto) 0.3 Neut % (Auto) 78.5 H Lymph % (Auto) 14.6 L [place] % (Auto) 6.4 Eos % (Auto) 0.0 Baso % (Auto) 0.2 Lymph # (Auto) 1.7 [place] # (Auto) 0.7 Eos # (Auto) 0.0 Baso # (Auto) 0.0 Abs Immat Gran (auto) 0.04 H Absolute Neuts (auto) 9.0 H Absolute Nucleated RBC 0.000 0.000 Nucleated RBC % (auto) 0.0 0.0 Smear Tech's Comments VERIFIED Sodium 137 140 Potassium 3.6 3.6 Chloride 99 108 Carbon Dioxide 21 L 20 L Anion Gap 21 H 16 BUN 47 H 26 H Creatinine 2.37 H 0.79 Estim Creat Clear Calc 36.4 109.4 Estimated GFR 28 > 60 Random Glucose 160 H 118 H Calcium 9.9 D 9.0 D Magnesium 2.3 2.4 Total Bilirubin 1.2 H 0.9 Direct Bilirubin 0.3 AST 117 H 111 H ALT 30 28 Alkaline Phosphatase 76 67 Total Creatine Kinase 4697 H 3792 H Total Protein 9.0 H 7.6 Albumin 5.0 4.1 Urine Color Yellow Urine Appearance Cloudy Urine pH 5.5 Ur Specific [place] 1.020 Urine Protein 30 (1+) H Urine Glucose (UA) Negative Urine Ketones 15 Urine Blood Moderate (2+) H Urine Nitrite Negative Ur Leukocyte Esterase Negative Urine RBC 0-2 Urine WBC 6-10 Ur Squamous Epith Cells 3-5 Urine Bacteria None Seen Hyaline Casts >20 Granular Casts Present Urine Opiates Screen POSITIVE H Ur Buprenorphine Scrn Positive H Ur Oxycodone Screen Not Detected Urine Methadone Screen Not Detected Urine Fentanyl Screen POSITIVE H Ur Barbiturates Screen Not Detected Ur Phencyclidine Scrn Not Detected Ur Amphetamines Screen Not Detected U Benzodiazepines Scrn Not Detected Urine Cocaine Screen POSITIVE H U Marijuana (THC) Screen POSITIVE H Ethyl Alcohol < 10 Mental Status Exam Mental Status Exam Level of Consciousness: Awake and Alert Patient Behavior: Appropriate and Guarded Affect Description: Blunted Speech Pattern: Clear and Soft-Spoken Thought Process: Intact Thought Content: positive for Intact and positive for [place] Judgement: Good Medications Medications Current Medications Acetaminophen (Acetaminophen 325 Mg Tablet) 650 mg PO Q6H PRN PRN Reason: Pain, Mild 1-3,fever,headache Buprenorphine/Naloxone (Buprenorphine/Naloxone 8/2 Mg Film) 1 film SUBLINGUAL BID@0800,1700 [facility] Calcium Carbonate (Calcium Carbonate 750 Mg Tab.Chew) 750 mg PO Q4H PRN PRN Reason: Heartburn Heparin Sodium (Porcine) (Heparin Sodium,Porcine 5,000 Unit/Ml Vial) 5,000 unit SUBCUT Q8H [facility] Last Admin: 12/02/24 10:19 Dose: 5,000 unit Lactated Ringer's (Lr) 1,000 mls @ 125 mls/hr IVCONT .Q8H [facility] Last Admin: 12/02/24 12:08 Dose: 125 mls/hr Magnesium Hydroxide (Milk Of Magnesia 30 Ml Oral.Susp) 30 ml PO DAILY PRN PRN Reason: Constipation Melatonin (Melatonin 3 Mg Tablet) 6 mg PO BEDTIME PRN PRN Reason: Insomnia Sodium Chloride (0.9 % Sodium Chloride Flush 3 Ml Syringe) 3 ml IVFLUSH QSHIFT [facility] Last Admin: 12/02/24 07:49 Dose: Not Given Allergies Allergies Allergy/AdvReac Type Severity Reaction Status Date / Time No Known Drug Allergies Allergy Unknown UNKNOWN Verified 12/01/24 16:04 Assessment & Plan Assessment & Plan (1) Opioid use disorder: Status: Acute Code(s): F11.90 - Opioid use, unspecified, uncomplicated Assessment and Plan: restart buprenorphine--8mg BID low vision therapist to follow up regarding dispo planning, including referral to [place] provider take home narcan at discharge overdose prevention discussion hepatitis and HIV screen with next lab draw Total time managing care of this patient today ____ minutes. PMF Past Medical History Medical History Opioid use disorder Alcohol abuse Family History Family History Other No family history of coronary artery disease Surgical History Surgical History No pertinent past surgical history Social History Social History Household Members: None Housing: Homeless Do you presently have visiting nurse or other home services: No Alcohol intake: current Alcohol intake frequency: a few times a week Patient Tobacco Use Status: Tobacco use Unknown Tobacco use type: Cigarette Cigarettes Per Day: 15 Smoked in Last 30 Days: Yes Use of substances other than those prescribed or required for medical reasons: Yes Substance Use Type: Crack/Cocaine, IV Drugs and Marijuana Advance Directives: No Advance Directives Information Provided: No Nutrition Risks: Poor intake 0-25% >4 days service: No Current occupational status: unemployed and disabled
--- NOTE | 2024-12-02 20:20 | PC.NURSE ---
right foot IV removed, site cleaned and dressed with gauze/tape
--- NOTE | 2024-12-02 20:24 | PC.NURSE ---
somnolent althought arouses to voice, answers questions, opens eyes/tracks, brief/mumbled but comprehensible communication. states needs are met at this time. call singh in reach. bed alarm on.
[2024-12-03] MEDS: Lactated Ringers 1,000 ML 125 ML IVCONT (04:32)
[2024-12-03 05:03] LABS: Anion Gap 15 (12-20); Blood Urea Nitrogen 15 mg/dL (9-16); Calcium 8.5 mg/dL (8.4-10.2); Carbon Dioxide 23 mmol/L (22-29); Chloride 108 mmol/L (96-108); Creatinine Clr Calc Pharmacy 139.4; Estimated Glomerular Filt Rate > 60; Potassium 3.7 mmol/L (3.3-5.1); Sodium 142 mmol/L (135-145)
[2024-12-03 05:18] VITALS: BP 152/91; PULSE 62; RESP 16; TEMP 37.1; O2SAT 96
--- NOTE | 2024-12-03 08:13 | PM.DS ---
DS: Providers Provider Date of Service: 12/03/24 Date of admission: 12/01/24 17:52 Date of discharge: 12/03/24 Primary care physician: Unknown Physician Consults: 12/01/24 18:10 Addiction Medicine Provider Routine Consulting Provider: Addiction Covering Reason for consultation: heroin DS: Diagnosis Discharge Diagnosis (1) Opioid use disorder: Status: Acute DS: Summary Hospital Course Hospital Course: from initial hpi: 59M PMH IVDA, mood disorder, alcohol dependence, homelessness presented with vague complaints of feeling unwell. Patient is a poor historian. He reports 2-3 days of feeling weak, tired, crampy. Reports lying down outside for long periods of time. Minimal p.o. intake. So he came to ED. In ED noted to have acute kidney injury with creatinine of 2.37, CPK of 4697. Denies fever, chills, nausea vomiting, diarrhea. hospital course: Patient was admitted for acute kidney injury due to rhabdomyolysis. Was given IV fluids and MICHELL resolved. CPK less than 2000 at time of discharge. Patient is encouraged to avoid IV drugs and alcohol. For opiate dependence was seen by Addiction team who recommended Suboxone. for aclohol dependence patient did not have any symptoms of withdrawal. Time Attestation Discharge Coordination Time (in mins): 33 Quality: Safe Use of Opioids Does Pt have an Active Cancer Diagnosis on the Problem List?: No Quality: Stroke Does the patient have a stroke diagnosis?: No Physical Exam Exam: Exam: General: AO X 3, no acute distress Resp: CTA bilateral, no accessory muscles used CVS: S1,S2,RRR GI: soft, non tender, non distended Neuro: motor grossly intact, alert Psych: appropriate affect, appropriate insight Vital Signs: Vital Signs: Last Vital Signs Temp 98.7 F 12/03/24 05:18 Pulse 62 12/03/24 05:18 Resp 16 12/03/24 05:18 BP 152/91 H 12/03/24 05:18 Pulse Ox 96 12/03/24 05:18 O2 Del Method Room Air 12/03/24 05:18 BMI result Body Mass Index 28.5 DS: Data Data Completed and Pending Completed studies during hospitalization [Text1]: Procedures Detoxification Services for Substance Abuse Treatment (09/30/21) Drainage of Right Upper Arm Skin, External Approach (09/30/21) Labs on day of discharge: Laboratory Results - last 24 hr 12/02/24 12/03/24 10:13 03:13 WBC 7.1 RBC 4.56 L Hgb 13.2 L Hct 37.1 L MCV 81.4 MCH 28.9 MCHC 35.6 RDW 12.9 Plt Count 194 MPV 9.9 Absolute Nucleated RBC 0.000 Nucleated RBC % (auto) 0.0 Sodium 140 142 Potassium 3.6 3.7 Chloride 108 108 Carbon Dioxide 20 L 23 Anion Gap 16 15 BUN 26 H 15 Creatinine 0.79 0.62 Estim Creat Clear Calc 109.4 139.4 Estimated GFR > 60 > 60 Random Glucose 118 H 113 Calcium 9.0 D 8.5 Magnesium 2.4 Total Bilirubin 0.9 Direct Bilirubin 0.3 AST 111 H ALT 28 Alkaline Phosphatase 67 Total Creatine Kinase 3792 H 1823 H Total Protein 7.6 Albumin 4.1 Preliminary micro results at discharge 12/01/24 Unknown Urine Culture - Preliminary Urine clean catch - Clean Catch Midstream No growth to date. Discharge Plan Discharge Anticipated Discharge Date/Time: 12/03/24 08:11 Patient Disposition: Senior Living Discharge Diagnosis: rhabdo Referrals: Physician,Unknown J [Primary Care Provider, Medical] - 1 Week Discharge Medications: No Action No Known Home Meds Discharge Orders: Discharge Order (Routine); Ordered 12/03/24 Ordered By: Jignesh Tejeda Diet: Advance to usual diet Activity on Discharge: As tolerated Stand Alone Forms: Patient Portal Discharge page Print Language: Burundian Care Plan Goals: recovery Health Concerns: michell Plan of Treatment: avoid drugs and alcohol Assessment: see above
[2024-12-03 08:57] VITALS: BP 167/86; PULSE 70; RESP 16; TEMP 36.9; O2SAT 98
[2024-12-03 10:21] VITALS: BP 167/86; PULSE 70; RESP 16; TEMP 36.9; O2SAT 98
--- NOTE | 2024-12-03 10:23 | PC.NURSE ---
Dr. Tejeda notified of bp 167/86 states its ok for discharge.
[2024-12-03] MEDS: Naloxone HCl Nasal TAKE HOME 4 MG SPRAY 8 MG NOSTRILALT (11:17)
--- NOTE | 2024-12-03 11:21 | MHC.RECOVRN ---
Met with pt. in overflow 2 upon his D/C and called [facility] with him. F/U appt made for MOUD on 12/10/24 at 10:00AM. Pt given written reminder of appt.
--- NOTE | 2024-12-03 13:38 | MHC.CM.PN ---
pt dcd after being seen [facility] for an appt mon 12/10 for suboxone [ptlft appt card and paperwork in overflow
== END 2024-12-03 11:40 | disposition home or self-care (01) | DRG 351 ==
LOC: HO.ED 16:53 → HO.EDOVER 18:03
PROVIDERS: Physician Assistant; Admitting Provider Internal Medicine; Emergency Provider Emergency Medicine; Visit Provider Internal Medicine
DX: M62.82 Rhabdomyolysis (principal); N17.9 Acute kidney failure, unspecified; F11.20 Opioid dependence, uncomplicated; E86.0 Dehydration; F10.20 Alcohol dependence, uncomplicated; Z59.02 Unsheltered homelessness
CPT/HCPCS: 36415; 80048; 80053; 80076; 80307; 81001; 82550; 83735; 85025; 85027; 87086; 99285; J1644; J7120; S9485

== ENCOUNTER → 2024-12-01 17:52 | Outpatient (BNV) | payer MEDICAID, SELFPAY | PROVIDERS: Admitting Provider Internal Medicine; Emergency Provider Emergency Medicine; Visit Provider Internal Medicine | DX: F11.90 Opioid use, unspecified, uncomplicated (principal) | CPT/HCPCS: 99223; 99232; 99239 ==

== ENCOUNTER → 2024-12-01 17:52 | Outpatient (BNV) | payer OTHER, SELFPAY | PROVIDERS: Admitting Provider Internal Medicine; Emergency Provider Emergency Medicine; Visit Provider Nurse Practitioner Psychiatric/Mental Health | DX: F11.90 Opioid use, unspecified, uncomplicated (principal) | CPT/HCPCS: 99232 ==

== ENCOUNTER 2025-01-16 15:56 | Emergency (ER) | payer MEDICAID, SELFPAY ==
[2025-01-16 16:10] VITALS: BP 90/60; PULSE 50
[2025-01-16 16:18] VITALS: BP 99/63; PULSE 75; RESP 18; TEMP 36.6; O2SAT 99; BMI 24.0
--- NOTE | 2025-01-16 16:25 | ED_ITS ---
HPI - General Adult General Chief complaint: ETOH/Substance Use Stated complaint: Drug use Time Seen by Provider: 01/16/25 16:25 History of Present Illness ED Provider: Lisa DAUGHERTY narrative: The patient is a 59-year-old male with history of IV drug use. He also admits to drinking alcohol. He was apparently found slumped against a light post near liquor store. He said that he had used heroin earlier. He had injected heroin. He had also had some alcohol. He says that please encouraged him to come to the hospital and he agreed to come here. However now that he is here he does not wish to have any testing done and would like to be discharged. He does not feel he has any medical emergency. He is aware of his substance use issues. He denies being assaulted or injured. No headache, no chest pain, no shortness of breath, no abdominal pain, nausea, vomiting. Related Data Previous Rx's ?Medication ?Instructions ?Recorded buprenorphine 8 mg-naloxone 2 mg 1 film buccal BID #14 ea 12/03/24 sublingual film (Suboxone) Allergies Allergy/AdvReac Type Severity Reaction Status Date / Time No Known Drug Allergies Allergy Unknown UNKNOWN Verified 01/16/25 16:20 Review of Systems Review of Systems: Yes all other systems are reviewed and are negative [facility] Past Medical History Medical History Opioid use disorder Alcohol abuse Surgical History No pertinent past surgical history Family History Family History Other No family history of coronary artery disease Social History Social History Household Members: None Housing: Homeless Do you presently have visiting nurse or other home services: No Alcohol intake: current Alcohol intake frequency: a few times a week Patient Tobacco Use Status: Tobacco use Unknown Tobacco use type: Cigarette Cigarettes Per Day: 15 Smoked in Last 30 Days: Yes Use of substances other than those prescribed or required for medical reasons: Yes Substance Use Type: Crack/Cocaine and Marijuana Substance Use Frequency: Chronic Longstanding Last Used Substance: Just Prior to Admission Advance Directives: No Advance Directives Information Provided: Yes Do you have a plan to hurt others: No Plan service: No Current occupational status: unemployed and disabled Physical Exam ED Vital Signs: Vital Signs - 24 hr 01/16/25 16:18 01/16/25 17:21 01/16/25 17:22 Temperature 97.9 F 98.0 F 98.0 F Pulse Rate 75 76 76 Respiratory Rate 18 16 16 Blood Pressure 99/63 110/72 110/72 Pulse Oximetry 99 99 99 Oxygen Delivery Method Room Air Room Air Room Air BMI result Body Mass Index 24.0 Const Other: The patient is a 59-year-old male who is reasonably well kempt. He is awake but somewhat drowsy. However he seems oriented and reasonably coherent. HENMT Other: The face is symmetrical. Mucous membranes moist. Eyes Other: Pupils are round equal, conjunctivae are clear, extraocular movements intact Neck Neck: Yes normal visual inspection, Yes full ROM, Yes no lymphadenopathy and Yes no JVD Resp Effort & Inspection: normal respiratory effort Auscultation: clear to auscultation bilaterally Cardio Other: No murmur heard Rate: regular rate Rhythm: regular rhythm Heart sounds: S1 normal heart sound present and S2 normal heart sound present GI Other: Abdomen is soft and nontender Skin Other: the patient has some track de [place] rosa on the skin of the arms. No erythema. Neuro Other: The patient was drowsy but awake and reasonably well oriented. Cranial nerves were intact. He moves his extremities symmetrically and appropriately. No focal findings. No severe impairment in his thought process. Extrem Other: The patient has track de [place] ro[place] in the skin of his arms but no swelling or signs of injury or infection. Medications Administered Discontinued Medications Generic Name Dose Route Start Last Admin Trade Name Freq PRN Reason Stop Dose Admin Naloxone HCl 8 mg 01/16/25 16:33 01/16/25 17:17 Naloxone Hcl Nasal Take Home 4 Mg [place] NOSTRILALT 01/16/25 16:34 8 mg ONCE ONE Administration Medical Decision Making Medical Decision Making MDM Narrative: The patient is an IV drug user and alcohol user who was brought to the hospital by ambulance after being found very sleepy on the sidewalk but without injury or other complaint. I think the patient is somewhat high but otherwise does not appear ill. The patient is not interested in any medical testing. The patient requested discharge. The patient was given some food and slept in the emergency room for a while and then was discharged without incident. Discharge Plan Discharge Clinical Impression: Substance use disorder Patient Disposition: Home, Self-Care Additional Instructions: Opiate use disorder You were seen in our Emergency Department today for treatment of opiate use disorder. You have been given naloxone (narcan) to take home with you. This medication is used to potentially treat opiate overdose. If you decide you want to stop or cut down on how much you?re using, you can call or walk into our outpatient Addiction Treatment office: [facility] (M-F 9am-5p) [address], [address] [phone] You may have been provided with safer injection?items, please take time to take care of YOU and your health. Use new supplies whenever possible to lessen the chances of infections and other illnesses.? ?If you need more supplies, please go [facility],? [address] [place] [address] OR you can call or text to coordinate delivery of safer supplies. You were also provided a list of several treatment providers in the area.? If you experience any worsening symptoms you cannot control please return to the ED or call 911. Please follow up at your next appointment. Things to look out for are fevers, chest pain, shortness of breath, severe pain, dizziness, fainting or any other concerns. Prescriptions: No Action buprenorphine-naloxone [Suboxone] 8-2 mg film 1 film buccal BID Qty: 14 0RF Referrals: [facility] [Provider Group] [facility] [Provider Group] [facility] [Provider Group] Interventions: ED Discharge Assessment Last Done: 01/16/25 17:22 Discharge Date/Time: 01/16/25 17:22 Print Language: Barbadian
--- OUTSIDE RECORDS SUMMARY | 2025-01-16 17:12 | XMS_ITS | Clinical Summary ---
Author Organization [employer] Address [address] [place] [address] [place] [address] Care Team Providers Care Assistant Women'S Rowing Coach Name Role Phone Brian Kohler RN Unavailable [phone] Nelida Vicente Unavailable Encounters Date Type Department Care Team Description 12/27/2024 Patient Outreach [facility] [address] [place] [phone] Nelida Vicente 12/20/2024 Patient Outreach [facility] [address] [place] [id number] Nelida Vicente Care Coordination (C3 CM-W Nelida Vicente telephone call outreach) 12/20/2024 Patient Outreach [facility] [address] [place] [id number] Nelida Vicente Care Coordination (C3 CM-[facility] Nelida Vicente chart review) 12/20/2024 Patient Outreach [facility] [address] [place] [id number] Brian Kohler RN Care Coordination (C3CM- chart review) 12/20/2024 Patient Outreach [facility] [address] [place] [phone] Ros Gruber, BEVERLY 12/13/2024 Telephone [facility] [address] [place] [phone] Philip Gorman MD 11/15/2024 Telephone [facility] [address] [place] [phone] Kristie Jo RN 11/09/2024 Telephone [facility] [address] [place] [id number] Philip Gorman MD from Last 3 Months Social History Tobacco Use Types Packs/Day Years Used Date Smoking Tobacco: Never Assessed Sex and Gender Information Value Date Recorded Sex Assigned at Male 02/15/2022 10:17 AM EDT Legal Sex Male 10:17 AM EDT Gender Identity Male 11/28/2024 2:16 PM EDT Sexual Orientation Straight 02/15/2022 10 :17 AM EDT Plan of Treatment Health Maintenance Due Date Last Done Comments CT Colonography 1967 Colonoscopy 1967 Colorectal Cancer Screening 1967 Depression Screening 1967 FIT DNA/Cologuard 1967 FIT 1967 FOBT 1967 HIV Screening 1967 Lipid Panel 1967 SDOH Screening 1967 Sigmoidoscopy 1967 Disability Screening 1967 Alcohol/Substance Use Screening 1979 Tobacco Screening 1979 Hepatitis C Screening 09/22/1985 Pneumococcal Vaccine: 50+ Years (1 of 1 - PCV) 09/22/2017 Zoster Vaccines (1 of 2) 09/22/2017 COVID-19 Vaccine (1 - 2023-2 5 season) 2024 Influenza Vaccine (#1) 2024 DTaP/Tdap/Td Vaccines (2 - T d or Tdap) 03/21/2031 03/21/2021 RSV Patients and Patients Aged 60 years or older (1 - 1-dose 75+ series) 09/22/2042 Hepatitis A Vaccines Aged Out 07/24/2024, 12/31/2017 No longer eligible based on patient's age to complete this topic Hepatitis B Vaccines Completed 07/24/2024, 03/21/2018, 12/31/2017 HIB Vaccines Aged Out No longer eligi ble based on patient's age to complete this topic HPV Vaccines Aged Out No longer eligi ble based on patient's age to complete this topic IPV Vaccines Aged Out No longer eligi ble based on patient's age to complete this topic Meningococcal B Vaccine Aged Out No l onger eligible based on patient's age to complete this topic Meningococcal Vaccine Aged Out No jesse clifford eligible based on patient's age to complete this topic RSV under 20 months Aged Out No longe r eligible based on patient's age to complete this topic Rotavirus Vaccines Aged Out No longer eligible based on patient's age to complete this topic Insurance Silvina Feliz MA [facility] [address] [place] [id number] [place] [id number] Care Teams Assistant Women'S Rowing Coach Relationship Specialty Start Date End Date Brian Kohler RN [address] [place] [address] ROSITA Feliz Registered Nurse Family Medicine 12/20/24 Nelida Vicente 12/20/24
--- OUTSIDE RECORDS SUMMARY | 2025-01-16 17:12 | XMS_ITS ---
Author Organization [employer] Address [address] [place] [address] [address] [place] [address] Care Team Providers Care Cleaning Maid Name Role Phone Brian Kohler RN Unavailable [phone] Nelida Vicente Unavailable CM Complex Status:Outreach In Progress (Enrolling) Start date:12/20/2024 Enrollment reason:ADT Feed Overview ED- Pt went to [facility] on 12/19/24. Case Team Name Relationship Phone Brian Kohler RN(Responsible Staff) Registered John cohn [phone] Continued Care and Services Coordination
--- OUTSIDE RECORDS SUMMARY | 2025-01-16 17:12 | XMS_ITS ---
Author Organization [employer] Address [address] [place] [address] [address] [place] [address] Care Team Providers Care Engineered Wood Designer Name Role Phone Brian Kohler RN Unavailable [phone] Nelida Vicente Unavailable CHW Complex Status:Outreach In Progress (Enrolling) Start date:12/20/2024 Enrollment reason:ADT Feed Overview ED- [place] went [place] [facility] [place]. Case Team Name Relationship Phone Nelida Vicente(Responsible Staff) [phone] Continued Care and Services Coordination
[2025-01-16] MEDS: Naloxone HCl Nasal TAKE HOME 4 MG SPRAY 8 MG NOSTRILALT (17:17)
[2025-01-16 17:21] VITALS: BP 110/72; PULSE 76; RESP 16; TEMP 36.7; O2SAT 99
[2025-01-16 17:22] VITALS: BP 110/72; PULSE 76; RESP 16; TEMP 36.7; O2SAT 99
== END 2025-01-16 17:22 | disposition home or self-care (01) ==
LOC: HO.ED 17:09
PROVIDERS: Emergency Provider Emergency Medicine
DX: F19.90 Other psychoactive substance use, unspecified, uncomplicated (principal); R40.0 Somnolence
CPT/HCPCS: 99284